=== PATIENT | male | born 1960 | race African-American/Black ===

== ENCOUNTER 2016-07-25 05:53 | Inpatient (IN) ==
[2016-07-25 06:16] LABS: URINE CULTURE PL NEEDED? NO; URINE SOURCE VOIDED
--- NOTE | 2016-07-25 06:25 | PROVIDER DOCUMENTATION ---
HPI-Male Problem - General Chief Complaint: UTI Symptoms Stated Complaint: N/V SOB Time Seen by Provider: 07/25/16 06:13 Source: patient Allergies/Adverse Reactions: Patient Allergies Allergy/AdvReac Type Severity Reaction Status Date / Time codeine [Codeine] Allergy Intermediate ITCHING Verified 07/12/16 23:45 Home Medications: Amlodipine Besylate [Norvasc] 10 mg PO DAILY 06/20/15 - History of Present Illness-Male Nature of Presenting Problem: pt started with burning on urination 2 weeks ago and has occssional nausea and vomiting. he also states that his stool has recently been black. he is on disability for trouble with his knee Review of Systems - Adult - REVIEW OF SYSTEMS - ADULT Constitutional: denies: chills, fever Eyes: denies: discharge, blurred vision Ears, Nose, Mouth & Throat: denies: ear discharge, nose pain, throat pain Cardiovascular: denies: chest pain, irregular heart rate, poor circulation Respiratory: denies: chronic cough, cough, shortness of breath Gastrointestinal: reports: nausea, vomiting. denies: abdominal pain, constipation, diarrhea Genitourinary: reports: dysuria. denies: flank pain, urinary retention, urgency Musculoskeletal: denies: bone pain, joint pain, muscle weakness Integumentary: denies: itching, nail changes Neurological: denies: ataxia, numbness, other Psychiatric: denies: emotional problems Endocrine: denies: goiter, cold intolerance, heat intolerance Hematologic/Lymphatic: denies: low blood count, lymphedema Allergic/Immunologic: denies: eczema, frequent infections, hives Past History - Adult - PAST MEDICAL HISTORY-ADULT Review of Records: reports: Nursing Assessment Review, Medications Reviewed Major Childhood Illnesses: reports: denies history Cardiovascular: reports: HTN Respiratory: reports: denies history Gastrointestinal: reports: denies history Obstetrical/Gynecological: reports: denies history Genitourinary: reports: denies history Musculoskeletal: reports: arthritis, other (lower back pain/ carpal tunnel release/) Neurological: reports: denies history Psychiatric: reports: denies history Endocrine/Immune: reports: denies history Other Conditions: reports: denies history - PRIOR SURGERIES/PROCEDURES Surgical/Procedure History: reports: none - PRIOR HOSPITALIZATIONS Prior Hospitalizations: reports: for other non-related - IMMUNIZATION STATUS Childhood Immunizations: See Nurse Assessment Flu Vaccine: See Nurse Assessment - FAMILY HISTORY Family History: reviewed, not pertinent Physical Exam-General - PHYSICAL EXAM-ADULT Initial Vital Signs Reviewed: Yes - CONSTITUTIONAL General Appearance: appears well, alert, no apparent distress - EYES Eyes: PERRL/EOMI, pink conjunctivae - HEAD, EARS, NOSE, MOUTH & THROAT HENMT: normocephalic/atraumatic, moist mucous membranes, normal ENT inspection - NECK Neck: non-tender, full range of motion, supple, normal inspection - RESPIRATORY Respiratory: chest non-tender, lungs clear, normal breath sounds, no pleuratic chest pain, no respiratory distress, no accessory muscle use - CARDIOVASCULAR Cardiovascular: normal peripheral pulses, regular rate, rhythm, no edema, no gallop, no JVD, no murmur - GASTROINTESTINAL (ABDOMEN) Abdominal Exam: normal bowel sounds, non tender, soft, no organomegaly, no pulsatile mass - GENITOURINARY Rectal Exam: normal exam, normal rectal tone - LYMPHATIC Lymphatic: no adenopathy - MUSCULOSKELETAL Back Exam: normal inspection, no CVA tenderness, no vertebral tenderness Extremity: normal range of motion, non-tender, normal gait, normal inspection, no pedal edema, no calf tenderness, normal capillary refill - SKIN Integumentary: normal color, normal turgor, warm/dry, abrasion(s) - NEUROLOGIC Neurologic: grossly normal, no motor/sensory deficits Progress - PLAN OF CARE/RESULTS Progress/Plan/Lab Results: Laboratory Tests 07/25/16 07/25/16 07/25/16 06:00 06:00 06:10 WBC RBC Hgb Hct MCV MCH MCHC RDW Std Deviation Plt Count MPV Immature Gran % (Auto) Neut % (Auto) Lymph % (Auto) [place] % (Auto) Eos % (Auto) Baso % (Auto) Immature Gran # (Auto) Neut # Lymph # [place] # Eos # Baso # Sodium Potassium Chloride Carbon Dioxide Anion Gap BUN Creatinine Estimated GFR/1.73 m2 BUN/Creatinine Ratio Glucose Calculated Osmolality Calcium Total Bilirubin AST ALT Alkaline Phosphatase Total Protein Albumin Globulin Albumin/Globulin Ratio Urine Source VOIDED Urine Color YELLOW Urine Clarity CLEAR Urine pH 6.0 Ur Specific [place] 1.020 Urine Protein TRACE A Urine Ketones NEGATIVE Urine Blood NEGATIVE Urine Nitrite NEGATIVE Urine Bilirubin NEGATIVE Urine Urobilinogen 4+(12 mg/dL) Urine Microscopic RBC <10 Urine WBC NEGATIVE Urine Microscopic WBC <10 Ur Epithelial Cells <10 Urine Bacteria NEGATIVE Urine Glucose NEGATIVE Stool Occult Blood POSITIVE A Urine Opiates Screen NONE DETECTED Ur Oxycodone Screen NONE DETECTED Urine Methadone Screen NONE DETECTED Ur Barbituates Screen NONE DETECTED Ur Tricyclics Screen NONE DETECTED Ur Phencyclidine Scrn NONE DETECTED Ur Amphetamines Screen PRESUMPTIVE POSITIVE A U Methamphetamines Scrn PRESUMPTIVE POSITIVE A Urine MDMA Screen NONE DETECTED U Benzodiazepines Scrn NONE DETECTED Urine Cocaine Screen NONE DETECTED U Cannabinoids Screen PRESUMPTIVE POSITIVE A 07/25/16 07/25/16 06:30 06:30 WBC 10.16 RBC 2.78 L Hgb 7.5 L Hct 23.2 L MCV 83.5 MCH 27.0 MCHC 32.3 L RDW Std Deviation 13.8 Plt Count 476 H MPV 9.4 Immature Gran % (Auto) 0.4 Neut % (Auto) 57.9 Lymph % (Auto) 20.7 [place] % (Auto) 13.3 H Eos % (Auto) 7.2 Baso % (Auto) 0.5 Immature Gran # (Auto) 0.04 Neut # 5.89 Lymph # 2.10 [place] # 1.35 H Eos # 0.73 H Baso # 0.05 Sodium 134 L Potassium 3.6 Chloride 103 Carbon Dioxide 26 Anion Gap 5 BUN 9 Creatinine 0.8 Estimated GFR/1.73 m2 > 60 BUN/Creatinine Ratio 11 Glucose 111 H Calculated Osmolality 268 Calcium 8.5 L Total Bilirubin 0.20 AST 52 H ALT 73 H Alkaline Phosphatase 113 Total Protein 6.1 L Albumin 3.0 L Globulin 3.0 Albumin/Globulin Ratio 1.0 Urine Source Urine Color Urine Clarity Urine pH Ur Specific [place] Urine Protein Urine Ketones Urine Blood Urine Nitrite Urine Bilirubin Urine Urobilinogen Urine Microscopic RBC Urine WBC Urine Microscopic WBC Ur Epithelial Cells Urine Bacteria Urine Glucose Stool Occult Blood Urine Opiates Screen Ur Oxycodone Screen Urine Methadone Screen Ur Barbituates Screen Ur Tricyclics Screen Ur Phencyclidine Scrn Ur Amphetamines Screen U Methamphetamines Scrn Urine MDMA Screen U Benzodiazepines Scrn Urine Cocaine Screen U Cannabinoids Screen Orders Category Date Time Status CBC WITH ELECTRONIC DIFF [HEME] Stat Lab 07/25/16 06:30 Completed CMP [COMPREHENSIVE METABOLIC PANEL] [CHEM] Stat Lab 07/25/16 06:30 Completed OCCULT BLOOD SCREEN STOOL PL Stat Lab 07/25/16 06:10 Completed UDS [URINE DRUG SCREEN PL] Stat Lab 07/25/16 06:[address] W/POSS RFLX CULT [URINALYSIS] Stat Lab 07/25/16 06:00 Completed 0.9% Sodium Chloride Inj [Ns] 1,000 ml Med 07/25/16 07:51 Active IV 125 mls/hr 0.9% Sodium Chloride Inj [Ns] 80 ml Med 07/25/16 08:00 Active Pantoprazole [Protonix] 80 mg IV 10 mls/hr Vital Signs Temp Pulse Resp BP Pulse Ox 07/25/16 05:59 97.9 F 90 18 140/083 100 codeine [Codeine] Allergy (Intermediate, Verified 07/12/16 23:45) ITCHING Amlodipine Besylate [Norvasc] 10 mg PO DAILY 06/20/15 Omeprazole [Prilosec] 20 mg PO DAILY@0700 #30 capsule 06/11/16 Laboratory 07/25/16 07/25/16 07/25/16 06:30 06:30 06:10 WBC 10.16 RBC 2.78 L Hgb 7.5 L Hct 23.2 L MCV 83.5 MCH 27.0 MCHC 32.3 L RDW Std Deviation 13.8 Plt Count 476 H MPV 9.4 Immature Gran % (Auto) 0.4 Neut % (Auto) 57.9 Lymph % (Auto) 20.7 [place] % (Auto) 13.3 H Eos % (Auto) 7.2 Baso % (Auto) 0.5 Immature Gran # (Auto) 0.04 Neut # 5.89 Lymph # 2.10 [place] # 1.35 H Eos # 0.73 H Baso # 0.05 Sodium 134 L Potassium 3.6 Chloride 103 Carbon Dioxide 26 Anion Gap 5 BUN 9 Creatinine 0.8 Estimated GFR/1.73 m2 > 60 BUN/Creatinine Ratio 11 Glucose 111 H Calculated Osmolality 268 Calcium 8.5 L Total Bilirubin 0.20 AST 52 H ALT 73 H Alkaline Phosphatase 113 Total Protein 6.1 L Albumin 3.0 L Globulin 3.0 Albumin/Globulin Ratio 1.0 Urine Source Urine Color Urine Clarity Urine pH Ur Specific [place] Urine Protein Urine Ketones Urine Blood Urine Nitrite Urine Bilirubin Urine Urobilinogen Urine Microscopic RBC Urine WBC Urine Microscopic WBC Ur Epithelial Cells Urine Bacteria Urine Glucose Stool Occult Blood POSITIVE A Urine Opiates Screen Ur Oxycodone Screen Urine Methadone Screen Ur Barbituates Screen Ur Tricyclics Screen Ur Phencyclidine Scrn Ur Amphetamines Screen U Methamphetamines Scrn Urine MDMA Screen U Benzodiazepines Scrn Urine Cocaine Screen U Cannabinoids Screen 07/25/16 07/25/16 06:00 06:00 WBC RBC Hgb Hct MCV MCH MCHC RDW Std Deviation Plt Count MPV Immature Gran % (Auto) Neut % (Auto) Lymph % (Auto) [place] % (Auto) Eos % (Auto) Baso % (Auto) Immature Gran # (Auto) Neut # Lymph # [place] # Eos # Baso # Sodium Potassium Chloride Carbon Dioxide Anion Gap BUN Creatinine Estimated GFR/1.73 m2 BUN/Creatinine Ratio Glucose Calculated Osmolality Calcium Total Bilirubin AST ALT Alkaline Phosphatase Total Protein Albumin Globulin Albumin/Globulin Ratio Urine Source VOIDED Urine Color YELLOW Urine Clarity CLEAR Urine pH 6.0 Ur Specific [place] 1.020 Urine Protein TRACE A Urine Ketones NEGATIVE Urine Blood NEGATIVE Urine Nitrite NEGATIVE Urine Bilirubin NEGATIVE Urine Urobilinogen 4+(12 mg/dL) Urine Microscopic RBC <10 Urine WBC NEGATIVE Urine Microscopic WBC <10 Ur Epithelial Cells <10 Urine Bacteria NEGATIVE Urine Glucose NEGATIVE Stool Occult Blood Urine Opiates Screen NONE DETECTED Ur Oxycodone Screen NONE DETECTED Urine Methadone Screen NONE DETECTED Ur Barbituates Screen NONE DETECTED Ur Tricyclics Screen NONE DETECTED Ur Phencyclidine Scrn NONE DETECTED Ur Amphetamines Screen PRESUMPTIVE POSITIVE A U Methamphetamines Scrn PRESUMPTIVE POSITIVE A Urine MDMA Screen NONE DETECTED U Benzodiazepines Scrn NONE DETECTED Urine Cocaine Screen NONE DETECTED U Cannabinoids Screen PRESUMPTIVE POSITIVE A Departure - Departure Time of Disposition Order: 08:18 DIAGNOSIS: UGI bleed Disposition: ADMITTED INPATIENT 09 Certified Medical Emergency: Emergent Condition: Stable Additional Instructions: ED Follow Up Instructions: You have been treated by a care provider in the Emergency Department. These instructions are being provided to you so you can have an understanding of how to care for yourself upon discharge. Upon discharge from the Emergency Department, you are responsible for making arrangements for follow-up care by a physician of your choice. Take all prescribed medications as directed. Return to the Emergency Department immediately for any new or worsening symptoms. You may call the Physician Referral phone number at [phone] to obtain a list of Physicians who are taking new patients. Referrals: Reji Cruz MD [STAFF PHYSICIAN] - None,PCP [Primary Care Provider] - Forms: Return to School/Parent Work
[2016-07-25 06:30] LABS: OCCULT BLOOD 1 POSITIVE (NEGATIVE)
[2016-07-25 06:30] LABS: BILIRUBIN URINE NEGATIVE (NEGATIVE); BLOOD URINE NEGATIVE (NEGATIVE); CLARITY CLEAR (CLEAR); COLOR YELLOW; GLUCOSE URINE NEGATIVE (NEGATIVE); LEUKOCYTES URINE NEGATIVE (NEGATIVE); NITRITE URINE NEGATIVE (NEGATIVE); PROTEIN URINE TRACE mg/dL (NEGATIVE); UROBILINOGEN URINE 4+(12 mg/dL)
[2016-07-25 06:40] LABS: MANUAL DIFF NEEDED? NO
[2016-07-25 06:41] LABS: UR AMPHETAMINES QUAL PRESUMPTIVE POSITIVE (NONE DETECT); UR BARBITUATES QUAL NONE DETECTED (NONE DETECT); UR BENZODIAZEPIN QUAL NONE DETECTED (NONE DETECT); UR CANNABINOIDS QUAL PRESUMPTIVE POSITIVE (NONE DETECT); UR COCAINE QUAL NONE DETECTED (NONE DETECT); UR MDMA QUAL NONE DETECTED (NONE DETECT); UR METHADONE QUAL NONE DETECTED (NONE DETECT); UR METHAMPHETAMINE QUAL PRESUMPTIVE POSITIVE (NONE DETECT); UR OPIATES QUAL NONE DETECTED (NONE DETECT); UR OXYCODONE QUAL NONE DETECTED (NONE DETECT); UR PCP QUAL NONE DETECTED (NONE DETECT); UR TCA QUAL NONE DETECTED (NONE DETECT)
[2016-07-25 06:45] LABS: URINE EPITHELIAL CELLS <10 /HPF (<10); URINE RBC <10 /HPF (<10); URINE WBC <10 /HPF (<10)
[2016-07-25 07:11] LABS: AGAP 5; ALKALINE PHOSPHATASE 113 U/L (32-122); BUN 9 mg/dL (8-22); CALCIUM 8.5 mg/dL (8.8-10.2); CHLORIDE 103 mmol/L (98-107); COSMO 268; GOT 52 U/L (10-34); GPT 73 U/L (10-44); POTASSIUM 3.6 mmol/L (3.5-5.1); SODIUM 134 mmol/L (136-145); TCO2 26 mmol/L (25-35); TOTAL PROTEIN 6.1 g/dL (6.3-8.3)
[2016-07-25 07:34] LABS: BASO% 0.5 % (0.0-0.8); EOS# 0.73 X1000 (0.0-0.7); EOS% 7.2 % (0.0-10.0); HEMATOCRIT 23.2 % (42.0-52.0); HEMOGLOBIN 7.5 g/dL (14.0-18.0); IMM GRAN# 0.04 X1000 (0.0-0.04); IMM GRAN% 0.4 % (0.0-0.5); LYMPH% 20.7 % (20.5-51.1); MCHC 32.3 g/dL (33-37); MCV 83.5 FL (81-99); MONO# 1.35 X1000 (0.11-0.59); MONO% 13.3 % (1.7-9.3); MPV 9.4 FL (7.4-10.4); NEUT% 57.9 % (42.2-75.2); PLT 476 X1000 (130-400); RBC 2.78 XMIL (4.7-6.1)
[2016-07-25] MEDS ORDERED: NS 1,000 ML IV ONE (07:51)
[2016-07-25] MEDS ORDERED: PROTONIX 80 MG in NS 80 ML IV SCH (08:00)
[2016-07-25 08:50] LABS: INR 0.99 (0.86-1.15); PROTIME 13.4 Seconds (12.1-15.5)
[2016-07-25] MEDS ORDERED: THIAMINE IM ONE (09:06)
--- NOTE | 2016-07-25 09:40 | HISTORY AND PHYSICAL ---
CHIEF COMPLAINT: Burning on urination and abdominal pain. HISTORY OF PRESENT ILLNESS: This is a 56-year-old male with a history of hypertension, medical noncompliance, and substance abuse, alcohol abuse. He presented to the emergency room complaining of 2 weeks of abdominal pain, nausea, vomiting, and burning on urination. He said that the burning on urination started first, and within about 2 days he developed nausea and then started vomiting. He started taking Pepto-Bismol, and a few days after starting the Pepto-Bismol, his stools turned black. He denies any prior black or bloody stools. He denies diarrhea or constipation. He has continued to eat and tolerated food in between bouts of nausea and vomiting. He does have a history of alcoholism, as well as methamphetamine and marijuana use. He told the ER that he drinks a 6-pack twice a week. He does admit to drinking quite a bit more than that. He has never had any GI testing. In the emergency room, he was found to have a hemoglobin of 7.5 and hematocrit of 23.2. In looking back at his old chart over the previous years, he has been it looks like 11 to 13 and 35 to 45 in the past. He was also found to have guaiac-positive stools. PAST MEDICAL HISTORY: Hypertension, medical noncompliance, alcohol abuse, illicit drug abuse, tobacco abuse. PAST SURGICAL HISTORY: Bilateral carpal tunnel surgery. SOCIAL HISTORY: He lives alone. He does smoke 1 pack a day. He drinks almost daily. He does use methamphetamines and marijuana daily. ALLERGIES: Codeine, which causes itching. HOME MEDICATIONS: "Some blood pressure pill, but I have not had it in a while." REVIEW OF SYSTEMS: A 14-point review of systems is discussed with the patient with pertinent positives stated in the HPI. He denies chest pain, palpitations, syncope, dizziness, any black or bloody vomitus, any bloody stools, diarrhea, constipation, shortness of breath, cough, fever, chills, recent weight loss or weight gain, hematuria, frequency or urgency. PHYSICAL EXAMINATION: GENERAL: This is a 56-year-old gentleman who is lying in the bed, in no distress. VITAL SIGNS: Blood pressure is 140/83 with a heart rate of 90, respirations are 18, temperature is 97.9 degrees with room air saturations of 100%. HEENT: Head is normocephalic, atraumatic. Pupils equal, round, react to light. EOMs are intact. Sclerae anicteric. Mucous membranes are moist. He has poor dentition. NECK: Supple with trachea midline. CARDIOVASCULAR: Regular rate and rhythm. S1 and S2 appreciated. PULMONARY: Breath sounds are clear. No increased work of breathing noted. GASTROINTESTINAL: Abdomen is soft, nontender, nondistended. Bowel sounds in all 4 quadrants. BACK: No CVAT. No spine tenderness. MUSCULOSKELETAL: Good range of motion of joints. EXTREMITIES: No clubbing, cyanosis, or edema. Calves are nontender. Pulses are palpable x4. SKIN: Warm and dry with no rashes or lesions noted. NEUROLOGIC: He is alert and oriented x3. DIAGNOSTICS: WBC is 10.16 with a hemoglobin 7.5, hematocrit 23.2, and platelets of 476,000. Sodium is 134, potassium 3.6, BUN 9, creatinine 0.8, with a glucose of 111. Urinalysis is essentially negative. Stool for blood was positive. Urine drug screen is positive for amphetamines, methamphetamines, and cannabinoids. ASSESSMENT AND PLAN: 1. Gastrointestinal bleed. The patient will remain nothing by mouth. He has been typed and crossed. He is currently receiving a Protonix drip. We will trend hemoglobin and hematocrit. Gastrointestinal will be consulted. 2. Hypertension. The patient has been prescribed antihypertensives in the past, and he has been noncompliant. At the present, he does not remember what medication he has been prescribed or when he last took it. We will start appropriate medications and trend vital signs. 3. Alcohol abuse. He did admit to drinking more than what he stated when he came into the emergency room. We will go ahead and give thiamine now. We will start a banana bag daily. We will monitor for any withdrawal. 4. 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 5. Tobacco abuse, aware. Dictated by MALKA Grullon for Alfa Pearce MD
[2016-07-25] MEDS ORDERED: POTASSIUM CHLORIDE 20 MEQ, MAGNESIUM SULFATE 2 GM, THIAMINE 100 MG, FOLIC ACID 1 MG, M.... IV SCH ×6 (11:00)
[2016-07-25 12:06] LABS: HEMATOCRIT 23.3 % (42.0-52.0); HEMOGLOBIN 7.5 g/dL (14.0-18.0)
[2016-07-25 12:21] LABS: AMYLASE 107 U/L (20-200); HDL 65 mg/dL (35-55); LDL 78 mg/dL; LIPASE 52 U/L (13-60); TRIGLYCERIDES 81 mg/dL (39-160); VLDL 16 mg/dL
[2016-07-25 12:22] LABS: IRON SATURATION 5 %; TIBC 276 ug/dL; TOTAL IRON 14 ug/dL (53-167); UNBOUND IRON 262 ug/dL (112-346)
[2016-07-25 13:11] LABS: FREE T4 1.19 ng/dL (0.93-1.70)
[2016-07-25] MEDS: APRESOLINE IV PRN (13:40)
[2016-07-25] MEDS: TYLENOL PO PRN (16:45)
--- NOTE | 2016-07-25 17:15 | Diag Imaging Result Document ---
PROCEDURE NAME: CHEST-PORTABLE - 07/25/2016 PORTABLE UPRIGHT CHEST: COMPARISON: Compared to 07/12/2016. FINDINGS: The lungs are well expanded. Heart is not enlarged considering the portable upright exam. The vessels are not distended. No pneumonia. No pleural effusions identified. There is an old left rib fracture. IMPRESSION: Negative chest.
[2016-07-25] MEDS: PROTONIX 80 MG in NS 80 ML IV SCH (17:45)
[2016-07-25 17:46] LABS: HEMATOCRIT 27.2 % (42.0-52.0)
[2016-07-25] MEDS ORDERED: GOLYTELY PO ONE (20:00)
[2016-07-25] MEDS: ZOSYN 3.375 GM/NS 50 ML IV SCH (20:30)
[2016-07-25] MEDS: ATIVAN IM PRN (21:00)
[2016-07-25] MEDS: M.V.I.-12 10 ML, FOLIC ACID 1 MG, MAGNESIUM SULFATE 1 GM, THIAMINE 100 MG in NS 1,000 ML IV SCH (21:15)
[2016-07-25 22:12] LABS: HEMATOCRIT 29.4 % (42.0-52.0); HEMOGLOBIN 9.9 g/dL (14.0-18.0)
--- NOTE | 2016-07-25 22:53 | CONSULTATION ---
DATE OF CONSULTATION: 07/25/2016 REFERRING PHYSICIAN: Dr. Balbir Seymour M.D. PRIMARY EMERGENCY ROOM PHYSICIAN: Dr. Kimo El M.D. PRIMARY CARE PHYSICIAN: Dr. Lauri Cruz M.D. INDICATION FOR CONSULTATION: 1. Anemia. 2. Melena. 3. Abdominal pain. 4. Nausea with vomiting. HISTORY OF PRESENT ILLNESS: The patient is a 56-year-old, male , who presented to the emergency room with 2 weeks of nausea with vomiting, abdominal pain, dark stools, and burning when he urinates. He developed burning with urination initially. This was followed by the onset of the nausea with vomiting and abdominal pain. His stools turned dark. He subsequently started Pepto-Bismol. He does note that his stools were dark before the Pepto-Bismol. Consequently, he has had difficulty eating due to the nausea with vomiting and abdominal pain. However, when the nausea and vomiting subsides, he is able to tolerate his diet. He has a history of polysubstance abuse, including alcohol, methamphetamines, amphetamines and marijuana use. In the emergency room, his alcohol intake was reportedly a 6 pack twice a week. He has admitted other nursing staff that he drinks on a near daily basis. He reports to me that he drinks a pint of vodka 2 to 3 times per week. Since admission, he was found to have heme- positive stools and was anemic. We are asked to evaluate and identify the source of bleeding. It should be noted that he had a GI bleed when he had a carpal tunnel syndrome, approximately 4 years ago. He reports at that time, an EGD and colonoscopy was performed at [facility] but no source of bleeding was found. PAST MEDICAL HISTORY: 1. Hypertension. 2. Alcohol abuse. 3. Illicit drug use. 4. Tobacco use. 5. Medical noncompliance. PAST SURGICAL HISTORY: Carpal tunnel syndrome. SOCIAL HISTORY: He lives alone. He smokes 1 pack per day for more than 20 years. He reports drinking alcohol on a daily basis, but then recanted and states that he drinks a few times per week. He has a history of methamphetamine, amphetamine and marijuana use. MEDICATION ALLERGIES: Codeine (itching). HOME MEDICATIONS: None. He has been prescribed a blood pressure medication but he is not currently taking it. REVIEW OF SYSTEMS: Positive for the information as noted above. PHYSICAL EXAMINATION: vital signs: On exam, his blood pressure is 135/89, pulse 94, respirations 16, temperature of 99. HEENT: Negative for jaundice. He has poor dentition. His oropharyngeal mucosal membranes are moist. Pulmonary: Lungs are clear to auscultation with normal respiratory effort. Cardiovascular: Reveals regular rate and rhythm. No murmurs, gallops , or rubs. Abdominal: Reveals normoactive bowel sounds. The abdomen is soft with mild epigastric tenderness, but no rebound or guarding. Extremities: Bilaterally are negative for cyanosis, clubbing, or edema. Neurologic: He is alert and oriented x3 with appropriate mood, affect, and memory. OBJECTIVE DATA: Remarkable for hemoglobin of 7.5, with hematocrit of 23.2, and a white count of 10.16. He has 476,000 platelets. Post transfusion of 2 units of packed red blood cells, his hemoglobin is 9.0 with hematocrit of 27.2. PT is 13.4 with an INR 0.99. Sodium is 134, potassium 3.6, chloride 103, CO2 of 26, BUN 9, creatinine 0.8, with a glucose of 111. Calcium is 8.5, total bilirubin 0.2, AST 52, ALT 73, alkaline phosphatase 113, total protein 6.1, with an albumin of 3.0. His folate is 7.6, with a B12 of 594. His iron is 14, with a 5% saturation and a ferritin of 45. IMPRESSION: 1. Nausea with vomiting. 2. Abdominal pain. 3. Melena. 4. Iron deficiency anemia. 5. Elevated liver function tests. 6. Protein calorie malnutrition. 7. Polysubstance abuse. 8. Alcohol abuse. 9. Folate deficiency. RECOMMENDATION: 1. I agree with the Protonix drip. 2. I agree with monitoring serial hemoglobins and hematocrits, and transfusing as indicated. 3. We will place patient on the schedule for an EGD and colonoscopy in the morning. The source of bleeding includes peptic ulcer disease and arteriovenous malformations, given his history of a GI bleed 4 years ago with no bleeding source found. 4. Please replete his folic acid. 5. His elevated liver function tests will require a more formal evaluation after the source of bleeding has been found. 6. I would check an acute viral hepatitis panel, in light of his polysubstance abuse. 7. Additional recommendations to follow based on his clinical course. 8. Consent was discussed with the patient, and multiple questions were answered. 9. We will schedule the patient for 7:30 a.m., on 07/26/2016. MTDD
[2016-07-26] MEDS: ZOSYN 3.375 GM/NS 50 ML IV SCH ×3 (03:43→20:00)
[2016-07-26] MEDS: PROTONIX 80 MG in NS 80 ML IV SCH ×3 (03:44→23:17)
[2016-07-26] MEDS ORDERED: FLEET ENEMA PR ONE ×2 (06:06→06:07)
[2016-07-26 06:19] LABS: HEMATOCRIT 27.5 % (42.0-52.0); HEMOGLOBIN 9.3 g/dL (14.0-18.0); MCH 27.8 PG (27-31); MCHC 33.8 g/dL (33-37); MCV 82.3 FL (81-99); MPV 9.4 FL (7.4-10.4); RBC 3.34 XMIL (4.7-6.1)
[2016-07-26] MEDS ORDERED: MYLICON DROPS (DOSE) MISC ONE (07:07)
[2016-07-26 07:13] LABS: AGAP 11; BUN 7 mg/dL (8-22); CALCIUM 7.9 mg/dL (8.8-10.2); CHLORIDE 103 mmol/L (98-107); COSMO 267; POTASSIUM 4.2 mmol/L (3.5-5.1); SODIUM 135 mmol/L (136-145); TCO2 21 mmol/L (25-35)
[2016-07-26] MEDS ORDERED: DIPRIVAN 1% ONE (08:19)
[2016-07-26] MEDS ORDERED: FENTANYL ONE (08:20)
[2016-07-26] MEDS ORDERED: FLUZONE QUAD 2016-2017 SYRINGE IM ONE (09:00)
[2016-07-26] MEDS ORDERED: M.V.I.-12 10 ML, FOLIC ACID 1 MG, MAGNESIUM SULFATE 1 GM, THIAMINE 100 MG in NS 1,000 ML IV SCH (09:00)
--- NOTE | 2016-07-26 09:58 | OPERATIVE NOTE ---
PROCEDURE DATE: 07/26/2016 REFERRING PHYSICIAN: Balbir Seymour M.D. PRIMARY CARE PHYSICIAN: Reji Cruz M.D. HEMATOLOGY/ONCOLOGY: Apryl Metz M.D. INDICATION FOR PROCEDURE: 1. Nausea with vomiting. 2. Abdominal pain. 3. Anemia. 4. Melena. 5. Polysubstance abuse. PROCEDURE PERFORMED: Colonoscopy. CONSENT: Informed consent was obtained from the patient prior to the procedure. The risks, benefits, and alternatives were discussed. MEDICATION: The patient received monitored anesthesia care. PERFORMING PHYSICIAN: Ashley Arauz M.D. ASSISTANTS: 1. [facility] 2. Joanna Madrigal RN. 3. Anabella Collier RN. 4. Alexi Gilbert CRNA. 5. Arslan Wilkinson M.D. (anesthesia) COMPLICATIONS: None. ESTIMATED BLOOD LOSS: None. SPECIMENS REMOVED: None. CECAL INTUBATION TIME: 6 minutes. WITHDRAWAL TIME: 7 minutes. PREP QUALITY: Poor. FINDINGS: After the EGD was performed, the patient was repositioned. The pediatric colonoscope was inserted to the cecum. Approximately 50%-60% of the cecal base was obscured. After evacuation, the review of the appendiceal orifice, and cecum appeared grossly normal. Upon withdrawal, the colonic mucosa appeared normal. In the sigmoid colon, there were rare sigmoid diverticula with no evidence of diverticulitis. In the upper rectum, there were grade 2 hemorrhoids. On retroflexed view, there were large external hemorrhoids. The quality of the prep was poor with approximately 40% of the lumen obscured. No large masses or polyps were seen. After the exam was complete, the lumen was decompressed and the scope was removed without incident. IMPRESSION: 1. Poor prep. 2. Rare sigmoid diverticulosis. 3. Grade 2 internal hemorrhoids. 4. Large external hemorrhoids. RECOMMENDATION: 1. Please see the EGD report for additional details. 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 2. From colonic standpoint, there was no evidence of polyps or masses. Therefore, I would repeat his colonoscopy in 5 years depending his outcome after treatment of the esophageal lesion. 3. In the future, he should be placed on a high-fiber diet. 4. Additional recommendations to follow based on his clinical course and the results of his ongoing evaluation. [facility]
--- NOTE | 2016-07-26 10:02 | OPERATIVE NOTE ---
PROCEDURE DATE: 07/26/2016 REFERRING PHYSICIAN: Balbir Seymour M.D. PRIMARY CARE PHYSICIAN: Reji Cruz M.D. INDICATION FOR PROCEDURE: 1. Nausea with vomiting. 2. Epigastric pain. 3. Anemia. 4. Melena. 5. Dysphagia. 6. Polysubstance abuse. PROCEDURE PERFORMED: 1. Esophagogastroduodenoscopy with biopsy. 2. Esophagogastroduodenoscopy with control of bleeding. CONSENT: Informed consent was obtained from the patient prior to the procedure. The risks, benefits, and alternatives were discussed. MEDICATION: The patient received monitored anesthesia care. PERFORMING PHYSICIAN: Ashley Arauz M.D. ASSISTANTS: 1. [facility] 2. Joanna Madrigal RN. 3. Anabella Collier RN. 4. Alexi Gilbert CRNA. 5. Arslan Wilkinson M.D. (anesthesia). COMPLICATIONS: There were no complications. ESTIMATED BLOOD LOSS: 1-2 mL. SPECIMENS REMOVED: 1. Biopsy of esophageal mass. 2. Biopsy of the upper esophagus from 30-34 cm. FINDINGS: After sedation was achieved, the upper endoscope was inserted to the 2nd portion of the duodenum. The hypopharynx appeared endoscopically normal. Upon intubating the esophagus, there was grade D erosive esophagitis beginning at the upper esophageal sphincter and extending the length of the esophagus. At 34 cm, there were 2 tongues of salmon-colored mucosa. The GE junction was irregular at 35 cm. Distal to the gastroesophageal junction in the distal tubular esophagus, there was a large ulcerated mass that was exophytic with luminal compromise. Multiple biopsies were taken. It should be noted that the mass was bleeding at the time of scope insertion. The diaphragmatic hiatus was measured at 45 cm from the incisors. Although the distal esophagus was tortuous with luminal narrowing, we were able to transverse the esophagus and intubate the gastric lumen. In the stomach, there was erosive gastritis and retained gastric fluid suggestive of possible stasis. The gastric mucosa appeared otherwise normal except for the aforementioned gastritis. It was present in the antrum, fundus, and body. The pylorus appeared endoscopically normal. In the duodenal bulb, there was mild duodenitis. There was also a nonbleeding AVM. After the exam was complete and biopsies were taken, the areas that were bleeding were cauterized with the black wire. Once hemostasis was achieved, the lumen was decompressed and the scope was removed without incident. IMPRESSION: 1. Grade D erosive esophagitis. 2. Distal esophageal mass. 3. 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 4. Mild luminal narrowing. 5. It should be noted that the blood vessels in the esophagus appear slightly prominent and therefore, I could not rule out the presence of esophageal varices. Judith ink tattoo was placed 0.5 mL x3 proximal to the esophageal lesion and distal to the esophageal lesion in the gastric mucosa. The lumen was then decompressed and the scope was removed without incident. IMPRESSION: 1. Grade D erosive esophagitis. 2. Esophageal mass. 3. Soquel-colored mucosa in the tubular esophagus, suggestive of Richmond's esophagus. 4. Erosive gastritis. 5. Duodenitis. 6. Cannot rule out esophageal varices. 7. Successful Judith ink tattoo placement. RECOMMENDATION: 1. Await endoscopic biopsy results. 2. I would obtain a chest, abdomen and pelvis CT scan today to stage his esophageal lesion. 3. He will need an EUS as an outpatient to define the lesion and possibly take deeper tissue biopsies. 4. Continue Protonix drip for 72 hours and then transition to twice daily dosing. 5. Please consult Dr. Apryl Metz from Hematology-Oncology for assistance with managing his lesion. 6. We will proceed with the colonoscopy as previously scheduled. [facility]
[2016-07-26] MEDS ORDERED: XYLOCAINE-MPF 2% ONE (10:19)
[2016-07-26 11:05] LABS: HEPATITIS PROFILE ACUTE SEE COMMENTS (())
[2016-07-26] MEDS ORDERED: VENOFER 300 MG in NS 250 ML IV ONE (11:40)
[2016-07-26] MEDS: APRESOLINE IV PRN (12:55)
--- NOTE | 2016-07-26 13:11 | Diag Imaging Result Document ---
PROCEDURE NAME: THORAX/ABDOMEN/PELVIS - 07/26/2016 CT THORAX ABDOMEN AND PELVIS WITH CONTRAST: TECHNIQUE: Exam performed with oral and intravenous contrast. A dose reduction protocol was used. FINDINGS: There is irregular wall thickening at the fundus of the stomach and there is wall thickening along the distal esophagus. These findings are suspicious for mass lesion. There is extension of mass into the nearby soft tissues around the fundus of the stomach with nodularity. The stomach distal to the fundus also appears to have some generalized thickened cui, although the cui are less thickened than at the fundus. The tumor extension extends to the superior peripancreatic region at the midline and to the left of midline. There is a 1.6 -cm low-density lesion in the anterior left lobe of the liver, which is suspicious for metastasis. There are 2 subcentimeter well-demarcated low-density liver lesions also present but these may represent cysts. There is no adrenal mass identified. The bilateral kidneys enhance homogeneously. There is no hydronephrosis. There are no calcified gallstones seen. There is no evidence of small-bowel obstruction. The appendix is unremarkable. There is no abscess identified. There is no free air. There is a small amount of free fluid in the pelvis. There are lumbar spine degenerative changes noted. There is an enlarged lymph node at the superior mediastinum on the right which measures 1.7 cm. There are calcified subcarinal mediastinal lymph nodes from old granulomatous disease. There are tiny bilateral pleural effusions. There is scattered pulmonary subsegmental atelectasis. There is no pulmonary nodular lesion identified. There is no dense consolidation or pneumothorax identified. IMPRESSION: 1. Large mass at the fundus of the stomach with apparent extension into the distal esophagus and possible extension into the more-distal stomach. Direct extension of the mass into the soft tissues around the fundus of the stomach with nodularity. The direct extension includes the superior peripancreatic region at the midline and to the left of midline. These findings are consistent with malignancy. 2. Probable small metastatic lesion in left lobe of liver. 3. Enlarged lymph node at superior mediastinum on the right, possibly related to metastasis. Tiny bilateral pleural effusions. No other discrete metastatic disease identified in the thorax. [facility]
--- NOTE | 2016-07-26 13:40 | CONSULTATION ---
DATE OF CONSULTATION: 07/26/2016 CONSULT REQUEST BY: Ashley Arauz MD REASON FOR CONSULTATION: Esophageal mass. HISTORY OF PRESENT ILLNESS: Mr. Shay is a 56-year-old, male, who presented to the [facility] Emergency Department complaining of 2 weeks of abdominal pain with nausea, vomiting, as well as an episode of melena. The patient was admitted for suspected gastrointestinal bleed. On admission, he was found to have a hemoglobin of 7.5. He is now status post esophagogastroduodenoscopy and colonoscopy. Esophagogastroduodenoscopy revealed him to have an esophageal mass, which was subsequently biopsied. The patient was given 2 units of packed red blood cells and his hemoglobin is now up to 9.3. He is currently in the ICU and has no acute complaints. Patient's diet is being slowly advanced. We have been consulted due to the new esophageal mass found on esophagogastroduodenoscopy. PAST MEDICAL HISTORY: 1. Hypertension. 2. Medical noncompliance. 3. Substance abuse. 4. Alcohol abuse. PAST SURGICAL HISTORY: Bilateral carpal tunnel surgery. SOCIAL HISTORY: Currently lives alone. He reports that he drinks daily and uses both methamphetamines, as well as marijuana. REVIEW OF SYSTEMS: As per history of present illness. All else is negative and noncontributory. PHYSICAL EXAMINATION: Vital Signs: Temperature 97.6 degrees, heart rate 74, respirations 14, blood pressure 155/109. O2 saturation 100% on room air. General: male, sitting in the ICU bed eating and drinking without any issues. His daughter is at bedside. Head: Normocephalic, atraumatic. Eyes: Pupils equal, round, and reactive Ears, nose, throat, neck, and mouth: Oral mucosa is normal. Gross auditory acuity is intact. Trachea is midline. Cardiovascular: S1-S2 heard. No murmurs, gallops, or rubs appreciated. Regular rate and rhythm. Respiratory: Essentially clear to auscultation bilaterally. Normal respiratory effort. No rhonchi, rales, or wheezing noted. Abdomen: Soft, nondistended. Positive bowel sounds. Musculoskeletal: No obvious bony abnormalities noted. Extremities: No cyanosis or edema. He does have some clubbing in his fingers. Neurologic: Patient is alert. No obvious focal motor deficits noted. LABORATORY AND STUDIES: White blood cells 10.52, hemoglobin 9.3, hematocrit 27.5, platelets 447,000. Sodium 135, potassium 4.2, chloride 106, CO2 21, BUN 7, creatinine 0.8, glucose 84, folate 7.6, vitamin B12 594, iron 14, saturation percent 5, ferritin 45. Colonoscopy was negative. ASSESSMENT AND PLAN: 1. Esophageal mass. Patient is now status post biopsy. We will wait pathology report. CT of chest, abdomen, and pelvis has been ordered, but the results are currently pending. Follow up on CT report. Further treatment planning upon receiving results from both of these studies. 2. Anemia, likely secondary to blood loss. He has already been given 2 units of packed red blood cells with improvement of his hemoglobin up to 9.3. We will proceed with 300 mg of Venofer at this time. Patient is currently getting folic acid 1 mg daily via a banana bag. Continue folic acid daily. 3. Gastritis. As per Dr. Arauz. 4. Alcohol and substance abuse. We are aware. Thank you for allowing us participate in Mr. Shay's care while he is at [facility]. We will continue to follow along and adjust our treatment plan per his hospital course. Dictated by JOSIAH Martino for Apryl Metz MD
[2016-07-26] MEDS: M.V.I.-12 10 ML, FOLIC ACID 1 MG, MAGNESIUM SULFATE 1 GM, THIAMINE 100 MG in NS 1,000 ML IV SCH (14:48)
--- NOTE | 2016-07-26 15:45 | PROGRESS NOTE ---
DATE: 07/26/2016 SUBJECTIVE: This is a 56-year-old, male, transferred from [facility] secondary to profound symptomatic anemia. He however was with altered mental state, likely secondary to polysubstance use and abuse. Initially presented to the ER with complaints of dysuria. As a matter of fact, yesterday a handgun was found his pocket and he did not even remember it was there all this long. In any case, GI consult was requested. Endoscopy showed grade D erosive esophagitis and esophageal mass, salmon-colored mucosa in the tubular esophagus suggestive of Richmond's esophagus, erosive gastritis, duodenitis, cannot rule out esophageal viruses, and successful Judith inked to 2 placements. Case discussed with Dr. Arauz, industrial electrician. She will order now to stage patient's cancer and we will proceed and try to get biopsies for further evaluation and treatment. Hematology/Oncology consult was also called and Dr. Arauz has evaluated the patient at bedside. Patient is otherwise asymptomatic. He says he wants to go home. Denies any gross bleed. Per report, he however has continuous bleeding and oozing from this ulcerative mass. I have explained to patient need to stay for further evaluation and treatment. Discussed with and registered nurse of the floor. OBJECTIVE: Vital Signs: Temperature 97.2 degrees, pulse 78, respiratory rate 14, blood pressure 116/75, saturating 100% on room air. HEENT: Head is atraumatic, normocephalic. Pale mucous membranes. No jaundice. Nose and throat clear. No thrush. Neck: Supple, no adenopathy. Chest: Nontender. Lungs: Clear bilaterally. Heart: S1, S2 present. Regular rate and rhythm. No murmurs. No rubs. No gallops. Telemetry sinus rhythm. Abdomen: Somehow distended, positive hepatosplenomegaly. Bowel sounds present. Deep touch tenderness epigastric area. Extremities: No distal edema. No calf tenderness. Neurologic: Awake, alert, oriented x3. No asterixis. Muscle strength 5/5 in 4 limbs. Preserved distal sensation. Psych : Anxious. LABS: White blood cell count of 10.5, with a hemoglobin of 9.3, hematocrit of 27.5. Sodium 135, with a potassium of 4.2, chloride 103, carbon dioxide 21, BUN of 7, creatinine of 0.8. EGD as reported in subjective. APPRECIATION AND PLAN: 1. Esophageal mass. 2. Grade D erosive esophagitis. 3. Erosive gastritis. 4. Duodenitis. 5. Possibly esophageal varices. 6. Acute blood-loss anemia. 7. Polysubstance abuse including alcohol. 8. Likely chronic alcoholic liver disease. DISCUSSION: EGD findings noted. Case discussed with GI, Dr. Arauz. Now will proceed with staging and Hematology/Oncology has been consulted. We will continue to evaluate and wait for further testing. He might need to be transferred to a higher level facility for further evaluation and treatment. This, however, is pending staging. We will continue with serial exams, bowel regimen, serial hemoglobin and hematocrit, transfuse as needed. No Lovenox or heparin for DVT prophylaxis secondary to active bleeding, and GI prophylaxis with PPIs. Check labs in the morning. Patient is critically ill. Keep in ICU. CRITICAL CARE TIME SPENT: 22 minutes not including any other separate billable procedures. [facility]
[2016-07-26] MEDS: ATIVAN IM PRN (20:43)
[2016-07-27] MEDS: ZOSYN 3.375 GM/NS 50 ML IV SCH ×3 (03:32→19:56)
[2016-07-27 04:43] LABS: MANUAL DIFF NEEDED? NO
[2016-07-27 04:45] LABS: BASO% 0.3 % (0.0-0.8); EOS# 0.83 X1000 (0.0-0.7); EOS% 7.2 % (0.0-10.0); HEMATOCRIT 26.8 % (42.0-52.0); HEMOGLOBIN 8.8 g/dL (14.0-18.0); IMM GRAN# 0.03 X1000 (0.0-0.04); IMM GRAN% 0.3 % (0.0-0.5); LYMPH# 2.03 X1000 (1.2-3.4); LYMPH% 17.7 % (20.5-51.1); MCH 27.5 PG (27-31); MCHC 32.8 g/dL (33-37); MCV 83.8 FL (81-99); MONO# 1.36 X1000 (0.11-0.59); MONO% 11.8 % (1.7-9.3); MPV 10.2 FL (7.4-10.4); NEUT% 62.7 % (42.2-75.2); PLT 450 X1000 (130-400)
[2016-07-27 05:06] LABS: AGAP 11; BUN 6 mg/dL (8-22); CALCIUM 7.9 mg/dL (8.8-10.2); CHLORIDE 108 mmol/L (98-107); COSMO 277; POTASSIUM 3.6 mmol/L (3.5-5.1); SODIUM 139 mmol/L (136-145); TCO2 20 mmol/L (25-35)
[2016-07-27] MEDS: NORVASC PO SCH (08:17)
[2016-07-27] MEDS ORDERED: DIPRIVAN 1% ONE (09:13)
[2016-07-27] MEDS: PROTONIX 80 MG in NS 80 ML IV SCH (09:25)
[2016-07-27] MEDS: APRESOLINE IV PRN (11:14)
--- NOTE | 2016-07-27 12:09 | PROGRESS NOTE ---
DATE: 07/27/2016 SUBJECTIVE: A 56-year-old, male, transferred from [facility] secondary to profound symptomatic anemia suspicious for GI bleed. EGD showed erosive mass in the distal esophagus with CAT scan showed a mass possibly coming from the stomach in the fundal area extending all the way up to the distal esophagus. There is also associated adenopathy intra- abdominal, some nodes noted in the mediastinum, another node noted in the liver. Patient is now tolerating some diet. He has been provided with Protonix drip, IV antibiotics. His hemoglobin has been dropping slowly though his vitals are stable and there is no indication to transfuse at this time. The patient requested information about discharge planning and I have advised him to study all his options before going home. We will for now transfer to the floor. OBJECTIVE: Temperature 99.5 degrees, pulse 92, respiratory rate 19, blood pressure 143/96, saturating 100% on room air.HEENT: Head atraumatic, normocephalic. Pupils reactive to light. Nose and throat clear. Neck: Supple. Abdomen: Epigastric tenderness. Bowel sounds present. Lungs: Clear bilaterally. Heart: S1, S2 present. Regular rate and rhythm. Extremities: No edema. No calf tenderness. Neurologic: Awake, alert, oriented x3. No asterixis. Psychiatric: Anxious. LABS: White blood cell count 11.4, with a hemoglobin of 8.8, hematocrit 26.8, and platelets of 450,000. Sodium 139, potassium 3.6, chloride 108, carbon dioxide 20, BUN of 6 and creatinine of 1. Glucose 136. Hepatitis analysis shows reactivity for hepatitis C antibody. A CT of the chest, abdomen and pelvis shows a large mass at the fundus of the stomach with apparent extension into the distal esophagus and possible extension into the more distal stomach. There is direct extension of the mass into the soft tissues around the fundus of the stomach with nodularity but distention includes the superior pancreatic region at the midline and to the left of midline. There is a probable small metastatic lesion in the left lobe of the liver and enlarged lymph nodes superior mediastinum on the right possibly related to metastasis. APPRECIATION AND PLAN: 1. Fundal mass with extensive metastases. 2. Grade D erosive esophagitis. 3. Duodenitis. 4. Possibly esophageal varices. 5. Acute blood-loss anemia. 6. Likely chronic alcoholic liver disease. 7. Polysubstance abuse. 8. Hepatitis C virus positivity. DISCUSSION: Patient has improved clinically. He has not reported of gross GI bleed. His hemoglobin and hematocrit though continues though slowly. He might require a transfusion of packed red blood cells even later today. However he is tolerating diet. He is afebrile, asymptomatic. Will discuss case with KARI Preciado. For now he needs to be on Protonix drip, serial exams, serial hemoglobin and hematocrit and transfuse as needed. Can move to floor.
--- NOTE | 2016-07-27 12:42 | CONSULTATION ---
DATE OF CONSULTATION: 07/27/2016 CHIEF COMPLAINT: Distal esophageal and gastric tumor. HISTORY: This is a 56-year-old black male admitted with some nausea, vomiting, abdominal pain, dark stools, who was evaluated by Dr. Arauz. EGD showed a distal esophageal tumor that radiates into the stomach. Biopsies were taken. Results are pending. CT scan shows the mass noted above as well as some extension outside the stomach, possible adenopathy and possible liver metastasis. PAST MEDICAL HISTORY: Pertinent for hypertension, alcohol abuse, tobacco abuse. Medical noncompliance. PREVIOUS SURGERIES: Carpal tunnel syndrome. MEDICATIONS: He is suppose to take a blood pressure tablet at home but does not take it. ALLERGIES: He says he is allergic to codeine. SOCIAL HISTORY: He lives alone. He smokes a pack a day. He drinks alcohol regularly. REVIEW OF SYSTEMS: As noted above. PHYSICAL EXAMINATION: VITAL SIGNS: Temperature is 99.5 degrees, heart rate 92, respiratory 19, blood pressure 180/95. No cervical adenopathy. LUNGS: Bilateral breath sounds. HEART: Regular rate and rhythm. ABDOMEN is soft and nontender. No abdominal scars are noted. EXTREMITIES: He has pedal pulses. No peripheral edema. 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 LABORATORY DATA: White count 11,400. Hemoglobin 8.8, hematocrit 26.8. BUN is 6, creatinine is 1.0. CEA is 7.2. 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 I have been asked to place a port as well as a feeding jejunostomy. I have discussed this with him briefly. We will wait on the final path before proceeding.
[2016-07-27] MEDS: M.V.I.-12 10 ML, FOLIC ACID 1 MG, MAGNESIUM SULFATE 1 GM, THIAMINE 100 MG in NS 1,000 ML IV SCH (13:26)
[2016-07-27] MEDS: ATIVAN IM PRN ×2 (14:18→23:40)
[2016-07-28] MEDS: PROTONIX 80 MG in NS 80 ML IV SCH ×2 (02:09→12:51)
[2016-07-28] MEDS: ZOSYN 3.375 GM/NS 50 ML IV SCH ×3 (04:45→20:13)
[2016-07-28 05:24] LABS: MANUAL DIFF NEEDED? NO
[2016-07-28 05:43] LABS: BASO% 0.3 % (0.0-0.8); EOS# 0.91 X1000 (0.0-0.7); EOS% 7.6 % (0.0-10.0); HEMATOCRIT 27.1 % (42.0-52.0); LYMPH# 2.36 X1000 (1.2-3.4); LYMPH% 19.8 % (20.5-51.1); MCH 28.4 PG (27-31); MCHC 33.2 g/dL (33-37); MCV 85.5 FL (81-99); MONO# 1.68 X1000 (0.11-0.59); MONO% 14.1 % (1.7-9.3); MPV 9.9 FL (7.4-10.4); NEUT% 58.2 % (42.2-75.2); PLT 446 X1000 (130-400); RBC 3.17 XMIL (4.7-6.1)
[2016-07-28 06:13] LABS: AGAP 12; BUN 7 mg/dL (8-22); CALCIUM 8.2 mg/dL (8.8-10.2); CHLORIDE 105 mmol/L (98-107); COSMO 276; POTASSIUM 3.8 mmol/L (3.5-5.1); SODIUM 139 mmol/L (136-145); TCO2 22 mmol/L (25-35)
[2016-07-28] MEDS: NORVASC PO SCH (08:22)
--- NOTE | 2016-07-28 12:43 | PROGRESS NOTE ---
DATE: 07/28/2016 SUBJECTIVE: This is a 56-year-old, who was admitted on 07/25/2016, who has a history of hypertension, medical noncompliance, substance abuse and alcohol abuse, presented to the emergency room complaining of 2 weeks of abdominal pain, nausea, vomiting, and burning on urination. He has a history of alcoholism, as well as methamphetamine and marijuana use in the past. In the ER, he admits that he drinks about a six-pack twice a week. At any rate, he had a CT scan done with complaints of gastrointestinal bleeding and concern about potential for alcohol withdrawal. CT of abdomen and pelvis done on the . He has a large mass in the fundus of the stomach with apparently extension into the distal esophagus and possible extension into the more distal stomach, direct extension of the mass into the soft tissues to the fundus of the stomach with nodularity. Direct extension includes superior peripancreatic region at midline and left of midline. These are compatible with malignancy, probably metastatic with the lesions in the liver. Enlarged lymph nodes superior to the mediastinum in the right possibly related to metastatic tiny bilateral pleural effusions. No other discrete metabolic disease identified. OBJECTIVE: Vital Signs: On exam today, temp 98.4 degrees, pulse 96, respirations 22, blood pressure 147/88. Lungs: Clear in all lung eldridge. Cardiovascular exam: Regular rhythm and rate without murmur or S3. Abdomen: Soft. Skin: Warm and dry. : Good urine output. REVIEW OF LABS: White count 11,910, hematocrit 27, platelet count 446,000. Sodium 139, potassium 3.8, chloride 105, BUN 7, creatinine 0.9. ASSESSMENT AND PLAN: 1. Fundal mass of stomach with extensive metastasis, grade D erosive esophagitis and duodenitis. Possible esophageal varices. 2. Acute blood loss anemia suspect secondary to malignancy. 3. Likely chronic alcohol liver disease. 4. Polysubstance abuse history. 5. Hepatitis C virus positivity. No gross gastrointestinal bleeding by his report. Continue present therapy. Probably need oncology involved. Review of his orders: Norvasc 10 mg a day, Zosyn q. 8 hours, IV Protonix. Getting multivitamin. I will add thiamine, and probably would benefit from getting multivitamin in banana bag.
[2016-07-28] MEDS: M.V.I.-12 10 ML, FOLIC ACID 1 MG, MAGNESIUM SULFATE 1 GM, THIAMINE 100 MG in NS 1,000 ML IV SCH (15:44)
[2016-07-29] MEDS: PROTONIX 80 MG in NS 80 ML IV SCH ×3 (00:07→21:18)
[2016-07-29] MEDS: ZOSYN 3.375 GM/NS 50 ML IV SCH ×3 (03:55→21:18)
[2016-07-29 07:48] LABS: AGAP 11; BUN 7 mg/dL (8-22); CALCIUM 8.6 mg/dL (8.8-10.2); CHLORIDE 101 mmol/L (98-107); COSMO 268; MAGNESIUM 2.1 mg/dL (1.5-2.7); POTASSIUM 4.4 mmol/L (3.5-5.1); SODIUM 135 mmol/L (136-145); TCO2 23 mmol/L (25-35)
[2016-07-29] MEDS: APRESOLINE IV PRN (07:50)
[2016-07-29] MEDS: NORVASC PO SCH (09:34)
[2016-07-29] MEDS: M.V.I.-12 10 ML, FOLIC ACID 1 MG, MAGNESIUM SULFATE 1 GM, THIAMINE 100 MG in NS 1,000 ML IV SCH (14:35)
--- NOTE | 2016-07-29 16:49 | PROGRESS NOTE ---
DATE: 07/29/2016 SUBJECTIVE: He states he feels pretty good. Has some burning sensation in the upper anterior chest/larynx area. Eating pretty good. OBJECTIVE: Vital signs: Temperature 98 degrees, pulse 84, respirations 20, blood pressure 154/84. Lungs: Clear in all lung eldridge. Cardiovascular: Regular rhythm and rate without murmur or S3. Abdomen: Soft. Skin: Is warm and dry. : Urine output 1200 mL. LABORATORY: Reviewed from yesterday. Hematocrit was 27, hemoglobin 9, platelet count 446,000. Sodium 135, potassium 4.4, chloride 101, bicarb 23, BUN 7, creatinine 1.9. Liver functions okay. Blood sugar 136, 113, 104. Carcinoembryonic antigen was 7.2, range is 0.2 to 3.5. ASSESSMENT AND PLAN: 1. Fundal masses stomach with extensive metastasis, grade D erosive esophagitis, duodenitis, possible esophageal varices. 2. Acute blood loss anemia, suspect secondary to malignancy. 3. Likely chronic alcoholic liver disease. 4. Polysubstance abuse history. 5. Hepatitis C. PLAN: Continue present therapy. Dr. Eisenberg has seen. Evaluation, probable malignancy distal esophagus, proximal stomach and metastasis. Asked to place a port and feeding jejunostomy tube, which I think we will proceed next week. I do not see anything to change at this point. He is on Zosyn antibiotic. No growth from blood cultures on the . Urine culture no growth.
[2016-07-30] MEDS: ZOSYN 3.375 GM/NS 50 ML IV SCH ×3 (04:04→20:21)
[2016-07-30] MEDS: PROTONIX 80 MG in NS 80 ML IV SCH ×2 (05:51→16:46)
[2016-07-30 07:27] LABS: AGAP 9; BUN 10 mg/dL (8-22); CALCIUM 8.3 mg/dL (8.8-10.2); CHLORIDE 102 mmol/L (98-107); COSMO 270; POTASSIUM 4.1 mmol/L (3.5-5.1); SODIUM 135 mmol/L (136-145); TCO2 24 mmol/L (25-35)
[2016-07-30] MEDS: NORVASC PO SCH (08:47)
[2016-07-30] MEDS: M.V.I.-12 10 ML, FOLIC ACID 1 MG, MAGNESIUM SULFATE 1 GM, THIAMINE 100 MG in NS 1,000 ML IV SCH (14:32)
--- NOTE | 2016-07-30 15:28 | PROGRESS NOTE ---
DATE: 07/30/2016 SUBJECTIVE: Mr. Shay said he had eaten some [employer] for lunch, getting ready for tomorrow. Says he feels good. OBJECTIVE: Temperature 97, pulse 79, respirations 20, blood pressure 136/85. Lungs are clear in all lung eldridge. Cardiovascular exam, regular rhythm and rate without murmur or S3. Good urine output over 1600 mL. LABS: Sodium 135, potassium 4.2, chloride 102, bicarb 24, BUN 10, creatinine 0.8. ASSESSMENT AND PLAN: 1. Fundal mass, stomach with extensive metastases, grade 2D erosive esophagitis, duodenitis, possible esophageal varices. 2. Acute blood loss anemia, suspect secondary to malignancy. 3. Likely chronic alcoholic liver disease. 4. Polysubstance abuse history. 5. Hepatitis C. PLAN: Dr. Eisenberg has consulted and Dr. Arauz on the case. Possible malignancy of distal esophagus, proximal stomach metastasis. We plan to put a port in and a feeding jejunostomy and then proceed with treatment. I reviewed orders, I do not see changes.
[2016-07-31] MEDS: PROTONIX 80 MG in NS 80 ML IV SCH ×2 (02:58→11:46)
[2016-07-31] MEDS: ZOSYN 3.375 GM/NS 50 ML IV SCH ×3 (03:55→20:30)
[2016-07-31 06:47] LABS: MANUAL DIFF NEEDED? NO
[2016-07-31 06:56] LABS: BASO% 0.9 % (0.0-0.8); EOS# 0.87 X1000 (0.0-0.7); EOS% 8.5 % (0.0-10.0); HEMATOCRIT 30.7 % (42.0-52.0); HEMOGLOBIN 10.3 g/dL (14.0-18.0); IMM GRAN# 0.04 X1000 (0.0-0.04); IMM GRAN% 0.4 % (0.0-0.5); LYMPH# 1.89 X1000 (1.2-3.4); LYMPH% 18.5 % (20.5-51.1); MCH 28.2 PG (27-31); MCHC 33.6 g/dL (33-37); MCV 84.1 FL (81-99); MONO# 1.36 X1000 (0.11-0.59); MONO% 13.3 % (1.7-9.3); MPV 9.9 FL (7.4-10.4); NEUT% 58.4 % (42.2-75.2); PLT 452 X1000 (130-400); RBC 3.65 XMIL (4.7-6.1)
[2016-07-31] MEDS ORDERED: NS 1,000 ML ONE (07:32)
[2016-07-31 12:29] LABS: HCV BY PCR SEE COMMENTS (()); HCV CHARGE YES
[2016-07-31] MEDS ORDERED: HEPARIN ONE (12:43)
[2016-07-31] MEDS ORDERED: XYLOCAINE 1%/EPI 1:100,000 ONE (12:43)
[2016-07-31] MEDS ORDERED: NS 250 ML ONE (12:43)
[2016-07-31] MEDS ORDERED: SODIUM CHLORIDE 0.9% ONE (12:43)
[2016-07-31] MEDS ORDERED: KEFZOL ONE (12:44)
[2016-07-31] MEDS ORDERED: DIPRIVAN 1% ONE (13:59)
[2016-07-31] MEDS ORDERED: FENTANYL ONE (13:59)
[2016-07-31] MEDS ORDERED: MORPHINE ONE ×2 (14:31→14:38)
[2016-07-31] MEDS ORDERED: QUELICIN (DOSE) ONE (14:47)
[2016-07-31] MEDS ORDERED: DECADRON ONE (14:47)
[2016-07-31] MEDS ORDERED: LR 1,000 ML ONE (14:47)
[2016-07-31] MEDS ORDERED: ANESTHESIA PB SET 88 IN 5742 ONE (14:47)
[2016-07-31] MEDS ORDERED: NEO-SYNEPHRINE ONE (14:47)
[2016-07-31] MEDS ORDERED: ZEMURON ONE (14:47)
[2016-07-31] MEDS ORDERED: XYLOCAINE-MPF 2% ONE (14:47)
[2016-07-31] MEDS: DILAUDID ONE ×4 (14:50→15:13)
[2016-07-31] MEDS: NORVASC PO SCH (15:44)
--- NOTE | 2016-07-31 15:44 | OPERATIVE NOTE ---
PROCEDURE DATE: 07/31/2016 PROCEDURE PERFORMED: Right subclavian port placement; Witzel feeding jejunostomy (#12 red Ferrer catheter). SURGEON: Bhaskar Eisenberg MD. AIRCREWMAN: Tea Du RN. PREOPERATIVE DIAGNOSIS: Cancer of the esophagus, stomach, with liver metastases. POSTOPERATIVE DIAGNOSIS: Cancer of the esophagus, stomach, with liver metastases. DESCRIPTION OF PROCEDURE: Satisfactory general endotracheal anesthesia was achieved. The right side of the neck and upper anterior chest were prepped and draped in a sterile fashion. We placed the patient in Trendelenburg. We anesthetized the skin and developed subcutaneous pocket that would admit the power port. We then accessed the right subclavian vein on the first stick, passed the guidewire under fluoroscopic guidance in the superior vena cava. We then passed the dilator and introducer sheath over the guidewire, removed the dilator and guidewire, and introduced the 9.6-Serbian single-lumen silicone catheter through the sheath into the superior vena cava to the junction of right atrium. We cut the catheter to the appropriate length, passed it on the stem of the port, locked it in position. We placed the port within the pocket. We used a 2-0 silk to secure the soft tissue to the hole in the rim of the port. We irrigated out the port pocket with Kefzol-impregnated saline, placed 3-0 Polysorb to the subcutaneous tissue. We accessed the port. It aspirated and irrigated easily. We gave the patient 4 mL of Hep-Lock. We then closed the skin with a 4-0 Polysorb subcuticular stitch. Telfa and a sterile OpSite was applied. The patient was then placed flat. The abdomen was then prepped and draped in a sterile fashion. I re-gowned and gloved. I made a midline incision in the epigastrium, carried our incision through the subcutaneous tissue through the midline fascia. Upon entering the abdominal cavity the cancer was palpated in the cardia of the stomach and in the mesentery toward the liver. We passed a 12 red Ferrer catheter through the abdominal wall in the left mid abdomen. We identified the ligament of Treitz and went for about 20 cm distal. We then made a 3-0 silk pursestring. We introduced the 12 red Ferrer catheter through an enterotomy inside the pursestring and passed the catheter distally. We then secured that pursestring stitch and then placed some 3-0 silks in a Lembert type fashion forming a Witzel tunnel. After tunneling it for a ways in the serosa of the bowel we then lifted the bowel up to the anterior abdominal wall and secured the bowel to the anterior abdominal wall with 3-0 silks. This thereby excluded the catheter completely from visualization. We secured the catheter at the exit site in the skin with a 3-0 nylon stitch at the skin at the exit site. We then plugged the catheter. Hemostasis was satisfactory. We closed the peritoneum with a 2-0 chromic, closed the fascia with a running #1 Maxon, irrigated the subcutaneous tissue, closed the skin with a 4-0 Monocryl subcuticular stitch. An island dressing was applied. He tolerated it well. He was sent to the recovery room in satisfactory condition. [facility]
[2016-07-31] MEDS: NS 1,000 ML IV SCH (15:45)
[2016-07-31] MEDS: M.V.I.-12 10 ML, FOLIC ACID 1 MG, MAGNESIUM SULFATE 1 GM, THIAMINE 100 MG in NS 1,000 ML IV SCH (16:12)
--- NOTE | 2016-07-31 16:25 | PROGRESS NOTE ---
DATE: 07/31/2016 SUBJECTIVE: Patient reports feeling good. OBJECTIVE: Vital Signs: Temperature 98.2, heart rate 88, respiratory rate 18, blood pressure 161/95. O2 saturation 100% on room air. General: This is a 56-year-old, male, lying in bed, in no acute distress. HEENT: Head is normocephalic, atraumatic. Anicteric sclerae and pale conjunctivae. Mucous membranes moist. Neck: Supple. No JVD noted. No carotid bruits. No lymphadenopathy. No thyromegaly. Cardiovascular exam: S1-S2 heard. No murmurs, gallops, or rubs. Regular rate and rhythm. Respiratory: Clear bilaterally to auscultation. No work of breathing or using accessory muscles. Abdomen: Soft, mildly tender to palpation in the epigastric area. No signs of peritoneal irritation. Bowel sounds present. No organomegaly. Extremities: No clubbing, cyanosis, or edema. Peripheral pulses present in both legs. Neurological: Patient is alert and oriented x3. Moves 4 extremities. LABORATORY DATA: White cell count 10.24, hemoglobin 10.3, hematocrit 30.7, platelets 452. ASSESSMENT: 1. Stomach cancer with extensive metastasis and erosive esophagitis. 2. Anemia of acute blood loss. 3. Chronic alcoholic liver disease. 4. History of polysubstance abuse. 5. Hepatitis C. PLAN: Because of this possible malignancy of the distal esophagus and proximal stomach, Dr. Arauz from GI has been consulted. She has consulted for Dr. Eisenberg for placement of port today. Then, they are planning to place a feeding jejunostomy and then proceed with treatment. After that we will see what GI has to say. The hemoglobin is so far stable. We will continue with the same management.
[2016-07-31] MEDS: MORPHINE IV PRN (23:09)
[2016-08-01] MEDS: PROTONIX 80 MG in NS 80 ML IV SCH ×3 (00:10→22:26)
[2016-08-01] MEDS: NS 1,000 ML IV SCH ×2 (01:10→22:14)
[2016-08-01] MEDS: ZOSYN 3.375 GM/NS 50 ML IV SCH ×3 (04:20→22:26)
[2016-08-01] MEDS: MORPHINE IV PRN ×5 (05:44→21:06)
[2016-08-01] MEDS: NORVASC PO SCH (09:34)
[2016-08-01] MEDS: M.V.I.-12 10 ML, FOLIC ACID 1 MG, MAGNESIUM SULFATE 1 GM, THIAMINE 100 MG in NS 1,000 ML IV SCH (13:59)
--- NOTE | 2016-08-01 16:18 | PROGRESS NOTE ---
DATE: 08/01/2016 SUBJECTIVE: Patient is feeling fine. Reports tolerating clear liquid diet. No episodes of choking. No abdominal pain. OBJECTIVE: Vital Signs: Temperature 97.5, heart rate 77, respiratory rate 20, blood pressure 150/85, O2 saturation 97% on room air. General Examination: This is a 56-year-old, male, lying in bed, in no acute distress. HEENT: Head is normocephalic, atraumatic. Anicteric sclerae and pale conjunctivae. Mucous membranes moist. Neck: Supple. No JVD noted. No carotid bruits. No lymphadenopathy. No thyromegaly. Cardiovascular: S1, S2 heard. No murmurs, gallops, or rubs. Regular rate and rhythm. Respiratory: Clear bilaterally to auscultation. No work of breathing or using accessory muscles. Abdomen: Soft, nontender to palpation. Bowel sounds present. No organomegaly. Jejunostomy tube present. Extremities: No clubbing, cyanosis, or edema. Peripheral pulses present in both legs. Neurological: Patient is alert and oriented x3. Able to move 4 extremities. Cranial nerves 2-12 grossly normal. LABORATORY DATA: There are no labs from today. ASSESSMENT: 1. Stomach cancer with extensive metastases and erosive esophagitis. 2. Anemia of acute blood loss. 3. Chronic alcoholic liver disease. 4. History of polysubstance abuse. 5. Hepatitis C. PLAN: Patient had a Port-A-Cath in. Jejunostomy tube placed per Dr. Eisenberg. At this time, we are basically waiting recommendations from GI to see what will be the next step. Patient is tolerating liquid diet very well, so we are going to advance as tolerated.
[2016-08-01] MEDS: TYLENOL PO PRN (20:10)
[2016-08-02] MEDS: MORPHINE IV PRN ×2 (03:06→07:22)
[2016-08-02] MEDS: ZOSYN 3.375 GM/NS 50 ML IV SCH (04:07)
[2016-08-02] MEDS: NS 1,000 ML IV SCH (04:08)
[2016-08-02] MEDS: PROTONIX 80 MG in NS 80 ML IV SCH (05:53)
[2016-08-02 07:17] VITALS: BP 149/96
[2016-08-02] MEDS: NORVASC PO SCH (08:43)
--- NOTE | 2016-08-02 21:47 | DISCHARGE SUMMARY ---
ADMISSION DATE: 07/25/2016 DISCHARGE DATE: 08/02/2016 CONSULTATION: 1. Ashley Arauz M.D., Gastroenterology. 2. Apryl Metz M.D., Hematology/Oncology. 3. Bhaskar Eisenberg M.D., General Surgery. PERTINENT PROCEDURES: 1. Chest, abdomen, and pelvis CT showed a large mass at the fundus of the stomach with apparent extension into the distal esophagus and possible extension into the more distal stomach, direct extension of the mass into the soft tissue around the fundus of the stomach with nodularity. The direct extension includes superior peripancreatic region, at the midline and left of midline. Findings are consistent with malignancy, probable small metastatic lesion in the left lobe of the liver, enlarged lymph nodes at the superior mediastinum on the right possibly related to metastasis, tiny bilateral pleural effusions. No other discrete metastases identified in the thorax. 2. EGD performed by Dr. Arauz with biopsy and control of bleeding. 3. Colonoscopy performed by Dr. Arauz that showed sigmoid diverticulosis, internal and external hemorrhoids. 4. Right subclavian port and a Witzel feeding jejunostomy. 5. Red Harry Catheter performed by Dr. Eisenbegr. DISCHARGE DIAGNOSES: 1. 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 Bhaskar Eisenberg. Patient has an appointment with Dr. Metz for further treatment options as well as palliative care followup. 2. Anemia of acute blood loss secondary to metastasis. 3. Chronic alcohol and liver disease, aware. 4. History of polysubstance abuse, aware. 5. Hepatitis C. 6. Upper GI bleed, resolved status post successful cauterization. 7. Erosive gastritis, duodenitis and suggestion of Richmond's esophagus on PPI. HOSPITAL COURSE: Mr. Shay is an 52-year-old, male with a history of hypertension, medical noncompliance, substance abuse, alcohol abuse, who presented to the emergency room with 2 weeks of abdominal pain, nausea, vomiting and burning upon urination. He said that the burning on urination started first and within about 2 days he developed nausea and started vomiting. The patient started taking Pepto-Bismol and after a few days his stools turned black. He denied any prior black or bloody stools. The patient continued to eat and tolerate food in between bouts of nausea and vomiting. He does have a history of alcoholism as well as methamphetamine and marijuana use. The patient admitted in the ED to drinking a 6 pack twice a week, however, he also admitted to doing quite a bit more than that. No history of any GI testing. He had a hemoglobin of 7.5, hematocrit of 23, and patient did have guaiac-positive stools. His urine drug screen was positive for amphetamines, methamphetamine and cannabinoids. The patient was admitted to the ICU. He was started on a Protonix drip. His hemoglobin and hematocrit were carefully monitored. Dr. Arauz was consulted. With the patient's history of alcohol abuse he was started on thiamin and banana bags, and watched closely for withdrawal. Dr. Arauz performed an EGD and colonoscopy. She did find esophagitis. There was a distal esophageal mass, possible Richmond's esophagus and she cauterized the bleeding area, and hemostasis was achieved. Colonoscopy just showed some diverticulosis, internal and external hemorrhoids. She suggests that a CT of the chest, abdomen and pelvis due to the mass with a HEM/ONC consultation for staging. Patient's CT did show a large mass at the fundus of the stomach with extension into the distal esophagus and possible extension into the more distal stomach with a mass into the soft tissue of the fundus of the stomach with nodularity and a small metastatic lesion in the left lobe of the liver. The specimen did show adenocarcinoma on both esophagus biopsies. The patient did receive 2 units of packed red blood cells. He was also started on and initiated on folic acid. Hematology did suggest a palliative care consultation. It was suggested that patient have port placement and PEJ. Dr. Eisenberg was consulted. He did the right subclavian port along with the J tube and for future treatments for both. The patient was tolerating a GI soft diet. He was initiated on a clear liquid diet. He again was tolerating that well. He was advanced to full liquids. However once patient, after having his appointment with Dr. Apryl Metz, he may require radiation to the stomach area which was the reason for the J-tube placement. He is not receiving any feedings from there at this time but in the near future they went ahead and placed those along with his port. He has an appointment with her on Saturday of next week and they will discuss further treatment options. The palliative care team did speak with Mr. Shay. They did talk to him about assisting in symptom management as an outpatient. The patient did agree to follow-up visits with palliative care. The daughter spoke with them and voiced concerns given the patient's history of drug use. However it has been discussed thoroughly with the patient about his prognosis and the need for cessation for illicit drugs, tobacco and alcohol. Again, patient is tolerating a full liquid diet. He was to continue to advance as tolerated and further options for his treatment will be discussed with Dr. Apryl Metz on Saturday. VITAL SIGNS AT TIME OF DISCHARGE: Temperature is 98 degrees, heart rate 86, respirations 19, blood pressure is 149/96, O2 is 97% on room air. DISCHARGE DIET: Full liquids. DISCHARGE MEDICATIONS: 1. Norvasc 10 mg p.o. daily. 2. Mccormick 5/325, 1 each p.o. q.6 p.r.n. 3. Prilosec 10 mg p.o. daily. FOLLOWUP: The patient is being discharged back to his residence that is at a hotel with a roommate. He does have daughters and other family members who are also involved in his care. Again they do show concerns with his history of drug use, alcohol and tobacco. Again it has been discussed cessation, education and the means to quit. Patient can return to the ED for any worsening of symptoms. He can follow up with Dr. Apryl Metz in 1 week. He will follow up with Dr. Arauz in 2-3 weeks. He can follow up with Dr. Reji Cruz in 7-10 days and he will also have follow-up visits with the Palliative Care team. TOTAL TIME SPENT ON DISCHARGE: 41 minutes. Dictated by MALKA Solorzano for Allen Chapa MD
== END 2016-08-02 13:36 | disposition home or self-care (01) | DRG 327 ==
LOC: P.ED 05:53 → ICU 08:43 → 3N 07-28 13:17
PROVIDERS: ATTEND Internal Medicine
PROC: 30233N1 Transfusion of Nonautologous Red Blood Cells into Peripheral Vein, Percutaneous Approach (ICD-10-PCS; 2016-07-25)
PROC: 0DB48ZX Excision of Esophagogastric Junction, Via Natural or Artificial Opening Endoscopic, Diagnostic (ICD-10-PCS; principal; 2016-07-26 07:07)
PROC: 0DB18ZX Excision of Upper Esophagus, Via Natural or Artificial Opening Endoscopic, Diagnostic (ICD-10-PCS; 2016-07-26 07:07)
PROC: 0DJD8ZZ Inspection of Lower Intestinal Tract, Via Natural or Artificial Opening Endoscopic (ICD-10-PCS; 2016-07-26 07:07)
PROC: 0JH60XZ Insertion of Tunneled Vascular Access Device into Chest Subcutaneous Tissue and Fascia, Open Approach (ICD-10-PCS; 2016-07-31)
PROC: 02HV33Z Insertion of Infusion Device into Superior Vena Cava, Percutaneous Approach (ICD-10-PCS; 2016-07-31)
PROC: 0DH60UZ Insertion of Feeding Device into Stomach, Open Approach (ICD-10-PCS; 2016-07-31 12:56)
DX: C16.0 Malignant neoplasm of cardia (principal); C78.7 Secondary malignant neoplasm of liver and intrahepatic bile duct; E46 Unspecified protein-calorie malnutrition; K70.9 Alcoholic liver disease, unspecified; D62 Acute posthemorrhagic anemia; K22.8 Other specified diseases of esophagus; F15.10 Other stimulant abuse, uncomplicated; I10 Essential (primary) hypertension; E53.8 Deficiency of other specified B group vitamins; K29.70 Gastritis, unspecified, without bleeding; K22.9 Disease of esophagus, unspecified; B19.20 Unspecified viral hepatitis C without hepatic coma; K20.8 Other esophagitis; K44.9 Diaphragmatic hernia without obstruction or gangrene; K29.60 Other gastritis without bleeding; K31.819 Angiodysplasia of stomach and duodenum without bleeding; K22.70 Barrett's esophagus without dysplasia; K57.30 Diverticulosis of large intestine without perforation or abscess without bleeding; K29.80 Duodenitis without bleeding; K64.1 Second degree hemorrhoids; F12.10 Cannabis abuse, uncomplicated; F10.20 Alcohol dependence, uncomplicated; F17.210 Nicotine dependence, cigarettes, uncomplicated; Z79.899 Other long term (current) drug therapy; Z91.19 Patient's noncompliance with other medical treatment and regimen; Z68.29 Body mass index [BMI] 29.0-29.9, adult
CPT/HCPCS: 36415; 71010; 71260; 74177; 77001; 80048; 80053; 80061; 80074; 81001; 82150; 82270; 82378; 82607; 82728; 82746; 83540; 83550; 83690; 83735; 84439; 84443; 85014; 85018; 85025; 85027; 85610; 86850; 86900; 86901; 86920; 87040; 87088; 87522; 88305; 88313; 93005; 96365; 96366; C1788; C9113; G0477; J0330; J0360; J0690; J1100; J1170; J1756; J2060; J2270; J2370; J2543; J3010; J3411; J3475; J7030; J7050; J7120; P9016; Q9967; S0164

== ENCOUNTER 2016-09-22 19:57 | Emergency (ER) ==
[2016-09-22 20:05] VITALS: BP 122/79
[2016-09-22] MEDS ORDERED: SEPTRA DS PO ONE (20:42)
--- NOTE | 2016-09-22 20:49 | PROVIDER DOCUMENTATION ---
HPI-Abdominal Pain/GI Problem - General Chief Complaint: General Adult Stated Complaint: GENERAL Time Seen by Provider: 09/22/16 20:13 Source: patient Allergies/Adverse Reactions: Patient Allergies Allergy/AdvReac Type Severity Reaction Status Date / Time codeine [Codeine] Allergy Intermediate ITCHING Verified 09/22/16 20:39 Home Medications: Home Medication List Medication Instructions Recorded Confirmed Last Taken Type Amlodipine Besylate [Norvasc] 10 mg PO DAILY 06/20/15 09/22/16 09/22/16 13:00 History Hydrocodone/APAP 5 mg/325 mg 1 each PO Q6H PRN PRN #30 tablet 08/02/16 09/22/16 09/22/16 13:00 Rx [Massey-5] Omeprazole [Prilosec] 40 mg PO DAILY #90 capsule. 08/02/16 09/22/16 09/22/16 13:00 Rx Cephalexin [Keflex] 500 mg PO BID #14 capsule 09/22/16 Unknown Rx Sulfamethoxazole/Trimethoprim 1 each PO BID #14 tablet 09/22/16 Unknown Rx [Bactrim Ds Tablet] - History of Present Illness-ABD Nature of Presenting Problems: 56 y/o BM presents to ED with c/o feeding tube displacement x 1 day. Pt states it came out about 7-8 hours ago. Reports that it was emplaced 6 weeks ago for emergency purposes during his tx of throat cancer. states it has not had to be used; states he flushes it with saline daily. His stitch came out of the skin yesterday, and he pointed that out to his surgeon, who was seeing him for check of his port. They stated to keep an eye on the tube. Denies any abd. pain, N/V /D/C. Review of Systems - Adult - REVIEW OF SYSTEMS - ADULT Constitutional: reports: no symptoms reported. denies: chills, fever Eyes: reports: no symptoms reported. denies: blurred vision, double vision Ears, Nose, Mouth & Throat: reports: no symptoms reported. denies: ear pain, nose pain Cardiovascular: reports: no symptoms reported. denies: chest pain, palpitations Respiratory: reports: no symptoms reported. denies: dyspnea on exertion, shortness of breath Gastrointestinal: reports: see HPI. denies: abdominal pain, nausea, vomiting Genitourinary: reports: no symptoms reported. denies: dysuria, frequency Musculoskeletal: reports: no symptoms reported. denies: joint pain, joint swelling Integumentary: reports: no symptoms reported. denies: nail changes, rash Neurological: reports: no symptoms reported. denies: numbness, paresthesia Psychiatric: reports: no symptoms reported Endocrine: reports: no symptoms reported. denies: cold intolerance, heat intolerance Hematologic/Lymphatic: reports: no symptoms reported. denies: easy bruising, prolonged bleeding Allergic/Immunologic: reports: no symptoms reported All Other Systems: Reviewed and Negative Past History - Adult - PAST MEDICAL HISTORY-ADULT Review of Records: reports: Nursing Assessment Review, Medications Reviewed Major Childhood Illnesses: reports: denies history Cardiovascular: reports: HTN Respiratory: reports: denies history Gastrointestinal: reports: denies history Obstetrical/Gynecological: reports: denies history Genitourinary: reports: denies history Musculoskeletal: reports: arthritis, other (lower back pain/ carpal tunnel release/) Neurological: reports: denies history Psychiatric: reports: denies history Endocrine/Immune: reports: denies history Other Conditions: reports: denies history - PRIOR SURGERIES/PROCEDURES Surgical/Procedure History: reports: none - PRIOR HOSPITALIZATIONS Prior Hospitalizations: reports: for other non-related - IMMUNIZATION STATUS Childhood Immunizations: See Nurse Assessment Flu Vaccine: See Nurse Assessment - FAMILY HISTORY Family History: reviewed, not pertinent - SOCIAL HISTORY Smoking: quit less than 1 year Physical Exam-General - PHYSICAL EXAM-ADULT Initial Vital Signs Reviewed: Yes - CONSTITUTIONAL General Appearance: alert, mild distress - EYES Eyes: pink conjunctivae - HEAD, EARS, NOSE, MOUTH & THROAT HENMT: normocephalic/atraumatic, moist mucous membranes - NECK Neck: normal inspection - RESPIRATORY Respiratory: lungs clear, normal breath sounds. negative: crackles, rales, rhonchi, stridor, wheezing - CARDIOVASCULAR Cardiovascular: regular rate, rhythm. negative: bradycardia, tachycardia - GASTROINTESTINAL (ABDOMEN) Abdominal Exam: normal bowel sounds, non tender, soft, other (abscess at feeding tube site with mild induration; small amount of purulent drainage present). negative: distended, guarding, rigid, McBurney's point tenderness, Miller's sign - MUSCULOSKELETAL Back Exam: normal inspection Extremity: normal gait - SKIN Integumentary: normal color, normal turgor, warm/dry, other (see above) - NEUROLOGIC Neurologic: negative: aphasia - PSYCHIATRIC Psych/Mental Status: normal mood/affect, normal thought content, normal thought process, oriented x 3 Progress - XRAY 1 XRAY Study: Chest, Abdomen XRAY Interpretation: NAD Departure - Departure Time of Disposition Order: 20:48 DIAGNOSIS: Abscess Feeding tube dysfunction Qualifiers: Encounter type: initial encounter Qualified Code(s): T85.598A - Other mechanical complication of other gastrointestinal prosthetic devices, implants and grafts, initial encounter Disposition: HOME 01 Certified Medical Emergency: Emergent Condition: Stable Additional Instructions: Follow up with your surgeon, or the GI specialist for recheck on Saturday. Return to ED if symptoms get worse. Take medications as directed. Keep wound clean and covered. ED Follow Up Instructions: You have been treated by a care provider in the Emergency Department. These instructions are being provided to you so you can have an understanding of how to care for yourself upon discharge. Upon discharge from the Emergency Department, you are responsible for making arrangements for follow-up care by a physician of your choice. Take all prescribed medications as directed. Return to the Emergency Department immediately for any new or worsening symptoms. You may call the Physician Referral phone number at [phone] to obtain a list of Physicians who are taking new patients. Prescriptions: Sulfamethoxazole/Trimethoprim [Bactrim Ds Tablet] 1 each PO BID #14 tablet Cephalexin [Keflex] 500 mg PO BID #14 capsule Referrals: None,PCP [Primary Care Provider] - Arpan Mckenna MD [STAFF PHYSICIAN] - Attestation - Physician/ CARLOS ALBERTO Attestation Patient care was provided by Advanced Practice Provider:: Yes Advanced Practice Provider:: Reyna Irizarry Advanced Practice Provider documentation review:: The Mid-level provider documentation, treatment plan and medical decision making was reviewed by the physician who agrees with all treatment and medical decision making by the P.
--- NOTE | 2016-09-23 08:40 | Diag Imaging Result Document ---
PROCEDURE NAME: FLAT/UPRIGHT ABD/1 VIEW CHEST - 09/22/2016 FLAT AND UPRIGHT ABDOMEN: FINDINGS: There is stool in the rectum. There is no evidence of bowel obstruction, organomegaly or mass. IMPRESSION: Constipation. PA CHEST: FINDINGS: There are old rib fractures on the left. Compared to 07/25/2016, there has been no significant change other than placement of a right Port-A-Cath. IMPRESSION: No acute disease.
== END 2016-09-22 21:11 | disposition home or self-care (01) ==
LOC: ED 19:57
DX: K94.23 Gastrostomy malfunction (principal); L02.211 Cutaneous abscess of abdominal wall; I10 Essential (primary) hypertension; M19.90 Unspecified osteoarthritis, unspecified site; Z79.899 Other long term (current) drug therapy; Z87.891 Personal history of nicotine dependence
CPT/HCPCS: 74022; 87070; 87077

== ENCOUNTER 2016-09-24 16:16 | Emergency (ER) ==
[2016-09-24 17:00] VITALS: BP 138/94
== END 2016-09-24 17:20 | disposition home or self-care (01) ==
LOC: ED 16:16
DX: K94.29 Other complications of gastrostomy (principal)

== ENCOUNTER 2016-10-11 19:20 | Emergency (ER) ==
[2016-10-11 19:40] VITALS: BP 159/112
[2016-10-11 20:02] LABS: MANUAL DIFF NEEDED? NO
[2016-10-11 20:18] LABS: BASO% 1.6 % (0.0-0.8); EOS# 0.45 X1000 (0.0-0.7); EOS% 8.2 % (0.0-10.0); HEMOGLOBIN 11.7 g/dL (14.0-18.0); LYMPH# 2.05 X1000 (1.2-3.4); LYMPH% 37.3 % (20.5-51.1); MCH 28.1 PG (27-31); MCHC 34.4 g/dL (33-37); MCV 81.7 FL (81-99); MONO# 0.77 X1000 (0.11-0.59); MPV 10.9 FL (7.4-10.4); NEUT% 38.9 % (42.2-75.2); PLT 224 X1000 (130-400); RBC 4.16 XMIL (4.7-6.1)
[2016-10-11] MEDS ORDERED: ULTRAM PO ONE (20:59)
--- NOTE | 2016-10-11 21:04 | PROVIDER DOCUMENTATION ---
HPI-General Adult - General Chief Complaint: Extremity Pain Stated Complaint: JOINT PAIN Time Seen by Provider: 10/11/16 19:33 Source: patient Allergies/Adverse Reactions: Patient Allergies Allergy/AdvReac Type Severity Reaction Status Date / Time codeine [Codeine] Allergy Intermediate ITCHING Verified 10/11/16 20:26 Home Medications: Home Medication List Medication Instructions Recorded Confirmed Last Taken Type Amlodipine Besylate [Norvasc] 10 mg PO DAILY 06/20/15 10/11/16 10/11/16 13:00 History Hydrocodone/APAP 5 mg/325 mg 1 each PO Q6H PRN PRN #30 tablet 08/02/16 10/11/16 10/11/16 13:00 Rx [[facility]-5] Omeprazole [Prilosec] 40 mg PO DAILY #90 capsule. 08/02/16 10/11/16 10/11/16 13:00 Rx Escitalopram Oxalate [Lexapro] 10 mg PO DAILY 10/11/16 10/11/16 10/11/16 13:00 History Ondansetron HCl [Zofran] 8 mg PO 4XDAY PRN PRN 10/11/16 10/11/16 10/10/16 07:00 History Tramadol [Ultram] 50 mg PO Q8HR #12 tablet 10/11/16 Unknown Rx - History of Present Illness -Gen Adult Nature of Presenting Problems: Pt. is 56 yom that presents with c/o joint pain on his right side only. Pt. denies any strenuous work or injury. Pt. reports a Hx of arthritis and states he is currently on Chemo for stomach CA. Pt. denies any other complaints at time of exam. Location of Pain/Injury: reports: hand(s) (Right), lower extremity (Right knee) . denies: head, face, mouth, neck, chest, upper extremity, abdomen, back, pelvis, genitalia, feet, upper body, lower body, generalized Pain Radiation: reports: no radiation Quality of Pain: reports: aching. denies: burning, cramping, dull, fullness, indigestion, pressure, sharp, stabbing, tearing, throbbing, tightness Severity: reports: mild. denies: moderate, severe Onset/Duration: reports: abrupt, last night Timing: reports: still present. denies: improving, gone now, resolved prior to arrival, intermittent, constant, changing over time, getting worse Context/Activities at Onset: reports: none. denies: recent emotional stress, recent physical stress, recent trauma history, possible bad food, cold exposure , out of country travel Modifying Factors: improves with: nothing Associated Symptoms: reports: fatigue, joint pain, malaise. denies: anxiety, arm pain, back/neck pain, chest pain, constipation, cough, diaphoresis, diarrhea , dizziness, EENT symptoms, fever/chills, genitourinary problems, headaches, heartburn, loss of appetite, muscle aches, sinus congestion/drainage, nausea, rash, seizure, shortness of breath, sensory/motor loss, pain with inspiration, swelling/mass in abdomen, syncope, vomiting, weakness, trouble walking Similar Symptoms Previously?: No Recently seen or treated by another doctor?: No Review of Systems - Adult - REVIEW OF SYSTEMS - ADULT Constitutional: reports: see HPI. denies: chills, fever, fatique Eyes: reports: see HPI. denies: discharge, blurred vision, double vision Ears, Nose, Mouth & Throat: reports: see HPI. denies: ear pain, hearing loss, nose pain, loose teeth, mouth/dental pain, throat pain, throat swelling Cardiovascular: reports: see HPI. denies: chest pain, heart murmur, orthopnea, palpitations, syncope Respiratory: reports: see HPI. denies: cough, dyspnea on exertion, pleurisy, shortness of breath, wheezing Gastrointestinal: reports: see HPI. denies: abdominal pain, hematemesis, constipation, frequent heartburn, nausea, poor appetite, vomiting Genitourinary: reports: see HPI. denies: dysuria, discharge, hematuria, hesitency, urgency Musculoskeletal: reports: see HPI, joint pain. denies: bone pain, back pain, joint swelling, muscle aches, neck pain Integumentary: reports: see HPI. denies: hives, itching, rash, skin thickening Neurological: reports: see HPI. denies: ataxia, headache/migraines, numbness, seizure, tremors Psychiatric: reports: see HPI. denies: anxiety, depression, emotional problems , insomnia, panic attacks, suicidal thoughts Past History - Adult - PAST MEDICAL HISTORY-ADULT Review of Records: reports: Old Records Reviewed, Nursing Assessment Review, Medications Reviewed, Social history reviewed & non-contributory. Major Childhood Illnesses: reports: denies history Cardiovascular: reports: HTN Respiratory: reports: denies history Gastrointestinal: reports: denies history Obstetrical/Gynecological: reports: denies history Genitourinary: reports: denies history Musculoskeletal: reports: arthritis, other (lower back pain/ carpal tunnel release/) Neurological: reports: denies history Psychiatric: reports: denies history Endocrine/Immune: reports: denies history Other Conditions: reports: denies history - PRIOR SURGERIES/PROCEDURES Surgical/Procedure History: reports: none - PRIOR HOSPITALIZATIONS Prior Hospitalizations: reports: for other non-related - IMMUNIZATION STATUS Childhood Immunizations: See Nurse Assessment Flu Vaccine: See Nurse Assessment - FAMILY HISTORY Family History: reviewed, not pertinent - SOCIAL HISTORY Smoking: cigarettes, greater than 1 pack/day Provider spent 3-5 mins advising pt. on dangers of tobacco.: Discussed the need to stop smoking. Physical Exam-General - PHYSICAL EXAM-ADULT Initial Vital Signs Reviewed: Yes - CONSTITUTIONAL General Appearance: alert, mild distress, thin. negative: obese, anxious, lethargic, slow to respond, obtunded, combative - EYES Eyes: PERRL/EOMI, pink conjunctivae. negative: conjuctival exudate, scleral icterus, subconjunctival hemorrhage - HEAD, EARS, NOSE, MOUTH & THROAT HENMT: normocephalic/atraumatic, moist mucous membranes. negative: angioedema, frontal tenderness, maxillary tenderness - NECK Neck: non-tender, full range of motion, supple, normal inspection. negative: lymphadenopathy, trachial deviation, thyromegaly - RESPIRATORY Respiratory: lungs clear, normal breath sounds. negative: crackles, rales, rhonchi, stridor, wheezing - CARDIOVASCULAR Cardiovascular: normal peripheral pulses, regular rate, rhythm, no edema, no JVD , no murmur. negative: extra beats, friction rub, irregularly irregular - CHEST (BREASTS) Chest/Breast: deferred - GASTROINTESTINAL (ABDOMEN) Abdominal Exam: normal bowel sounds, non tender, soft. negative: distended, guarding, rigid, rebound, tenderness, hernia, mass - GENITOURINARY Male Genitalia: deferred Rectal Exam: deferred Hemoccult Exam: deferred - LYMPHATIC Lymphatic: no adenopathy. negative: axilla node tender, cervical node tenderness - MUSCULOSKELETAL Back Exam: normal inspection, no CVA tenderness, no vertebral tenderness. negative: ecchymosis, swelling, vertebral tenderness Extremity: normal range of motion, normal gait, normal inspection, tenderness ( Right hand and right knee). negative: deformity, erythema, inflammation, swelling Peripheral Pulses: radial (R): 2+, radial (L): 2+ - SKIN Integumentary: normal color, normal turgor, warm/dry. negative: cyanosis, diaphoresis, ecchymosis, erythema, jaundice, mottled, pallor, petechiae, purpura , rash, swelling, tenderness - NEUROLOGIC Neurologic: grossly normal, no motor/sensory deficits. negative: aphasia, facial droop, focal weakness, motor weakness, sensory deficit - PSYCHIATRIC Psych/Mental Status: normal mood/affect, normal thought content, normal thought process, oriented x 3. negative: anxious, paranoid, tearful Progress - PLAN OF CARE/RESULTS Progress/Plan/Lab Results: Discussed plan of care with patient. Patient agrees with plan and verbalizes understanding. Vital Signs Temp Pulse Resp BP Pulse Ox 10/11/16 19:36 98.0 F 88 18 159/112 100 codeine [Codeine] Allergy (Intermediate, Verified 10/11/16 20:26) ITCHING Amlodipine Besylate [Norvasc] 10 mg PO DAILY 06/20/15 Hydrocodone/APAP 5 mg/325 mg [[facility]-5] 1 each PO Q6H PRN PRN #30 tablet Omeprazole [Prilosec] 40 mg PO DAILY #90 capsule. 08/02/16 Escitalopram Oxalate [Lexapro] 10 mg PO DAILY 10/11/16 Ondansetron HCl [Zofran] 8 mg PO 4XDAY PRN PRN 10/11/16 Laboratory 10/11/16 19:50 WBC 5.50 RBC 4.16 L Hgb 11.7 L Hct 34.0 L MCV 81.7 MCH 28.1 MCHC 34.4 RDW Std Deviation 21.2 H Plt Count 224 MPV 10.9 H Immature Gran % (Auto) 0.0 Neut % (Auto) 38.9 L Lymph % (Auto) 37.3 [place] % (Auto) 14.0 H Eos % (Auto) 8.2 Baso % (Auto) 1.6 H Immature Gran # (Auto) 0.00 Neut # (Auto) 2.14 Lymph # (Auto) 2.05 [place] # (Auto) 0.77 H Eos # (Auto) 0.45 Baso # (Auto) 0.09 Orders Category Date Time Status CBC WITH ELECTRONIC DIFF [HEME] Stat Lab 10/11/16 19:50 Results SED RATE [HEME] Stat Lab 10/11/16 19:50 Results Tramadol [Ultram] Med 10/11/16 20:59 Discontinued 50 mg PO NOW ONE Laboratory Tests 10/11/16 19:50 WBC 5.50 RBC 4.16 L Hgb 11.7 L Hct 34.0 L MCV 81.7 MCH 28.1 MCHC 34.4 RDW Std Deviation 21.2 H Plt Count 224 MPV 10.9 H Immature Gran % (Auto) 0.0 Neut % (Auto) 38.9 L Lymph % (Auto) 37.3 [place] % (Auto) 14.0 H Eos % (Auto) 8.2 Baso % (Auto) 1.6 H Immature Gran # (Auto) 0.00 Neut # (Auto) 2.14 Lymph # (Auto) 2.05 [place] # (Auto) 0.77 H Eos # (Auto) 0.45 Baso # (Auto) 0.09 Departure - Departure Time of Disposition Order: 21:16 DIAGNOSIS: Arthritic-like pain Qualifiers: Joint pain location: unspecified Qualified Code(s): M25.50 - Pain in unspecified joint Disposition: HOME 01 Certified Medical Emergency: Emergent Condition: Stable Additional Instructions: Follow up with primary care physician Take medications as directed Return to ED for any concerns or worsening of symptoms ED Follow Up Instructions: You have been treated by a care provider in the Emergency Department. These instructions are being provided to you so you can have an understanding of how to care for yourself upon discharge. Upon discharge from the Emergency Department, you are responsible for making arrangements for follow-up care by a physician of your choice. Take all prescribed medications as directed. Return to the Emergency Department immediately for any new or worsening symptoms. You may call the Physician Referral phone number at [phone] to obtain a list of Physicians who are taking new patients. Prescriptions: Tramadol [Ultram] 50 mg PO Q8HR #12 tablet Attestation - Physician/ CARLOS ALBERTO Attestation Patient care was provided by Advanced Practice Provider:: Yes Advanced Practice Provider:: Babak Hair Advanced Practice Provider documentation review:: The Mid-level provider documentation, treatment plan and medical decision making was reviewed by the physician who agrees with all treatment and medical decision making by the MLP.
[2016-10-11 21:21] LABS: SED RATE 13 mm/hr (0-15)
== END 2016-10-11 21:24 | disposition home or self-care (01) ==
LOC: ED 19:20
DX: M79.641 Pain in right hand (principal); M25.561 Pain in right knee; R53.83 Other fatigue; R53.81 Other malaise; I10 Essential (primary) hypertension; M19.90 Unspecified osteoarthritis, unspecified site; F17.210 Nicotine dependence, cigarettes, uncomplicated; Z79.899 Other long term (current) drug therapy; Z71.6 Tobacco abuse counseling
CPT/HCPCS: 85025; 85651

== ENCOUNTER 2016-10-27 12:49 | Inpatient (IN) ==
[2016-10-27] MEDS ORDERED: NS 1,000 ML ONE (13:15)
[2016-10-27] MEDS ORDERED: ZOFRAN ONE (13:15)
[2016-10-27] MEDS ORDERED: VANCOMYCIN 1 GM/NS 1 GM/250 ML IVPB ONE (14:19)
[2016-10-27] MEDS ORDERED: SOLU-MEDROL ONE (14:19)
[2016-10-27] MEDS ORDERED: ZOSYN 3.375 GM/NS 3.375 GM/50 ML IVPB ONE (14:20)
[2016-10-27] MEDS ORDERED: NS 2,000 ML ONE (14:46)
--- NOTE | 2016-10-27 18:59 | Diag Imaging Result Document ---
PROCEDURE NAME: CHEST-PORTABLE - 10/27/2016 AP PORTABLE CHEST AT 1605 HOURS: FINDINGS: There is a Port-A-Cath on the right with its tip in the superior vena cava. There are multiple old rib fractures on the left. There is no evidence of acute cardiac or pulmonary disease and no previous studies are available for comparison. IMPRESSION: No acute disease.
[2016-10-27 19:08] LABS: URINE CULTURE NEEDED? NO; URINE MICRO REVIEW NEEDED? NO; URINE SOURCE CLEAN CATCH
--- NOTE | 2016-10-27 20:06 | HISTORY AND PHYSICAL ---
PRIMARY CARE PROVIDER: Dr. Thompson. ONCOLOGIST: Dr. Metz. ASSEMBLER INSTALLER GENERAL: Dr. Arauz. CHIEF COMPLAINT: Syncope. HISTORY OF PRESENT ILLNESS: Mr. Shay is an male who has a medical history of seizures over 25 years ago recently diagnosed with esophageal gastric cancer on 07/24/2016, received chemo and radiation with last chemo being about a month ago and is followed by Dr. Metz. Also has a PEG tube but eats regular food. States that he woke up this morning feeling like he needed to use the restroom. He became sweaty, lightheaded and passed out twice. The girlfriend who was with him apparently states that he had jerking seizure-like activity and lost control of bowel and bladder. He remembers waking up, no obvious postictal noted. Denies fever or chills. He has had a cough but it has been nonproductive. Chest x-ray was negative for any acute findings. His white count normal at 7000. He did come in with a low temperature of 94.4, was warmed with IV fluids and a Kali Hugger and now is 97.6. Vital signs remained stable. PAST MEDICAL HISTORY: 1. Seizures greater than 25 years ago. 2. Esophageal gastric cancer with chemo, radiation diagnosed 07/24/2016. 3. Hypertension. 4. GERD. 5. GI bleed history. SURGICAL HISTORY: Carpal tunnel, right Port-A-Cath, PEG tube and questionable gastric resection, he was not sure, the daughter said no but some of the records in the ER shows that he may have had 1. SOCIAL HISTORY: Smokes about a pack every 2 weeks of cigarettes. Quit drinking in June but prior to that drank beer daily the amount is unknown. Smokes marijuana the last being yesterday. He and his girlfriend live in a hotel locally. FAMILY HISTORY: Mother had stomach cancer. ALLERGIES: Unknown. HOME MEDICATIONS: Prochlorperazine 10 mg p.o. every 8 hours as needed for nausea, Zofran as needed for nausea, [place] 10 twice daily, amlodipine 10 mg daily, Prilosec 40 mg daily, paroxetine 20 mg daily. REVIEW OF SYSTEMS: Fourteen point review of systems were complete and all were negative except for those mentioned in above HPI. LABORATORY DATA: White blood cells 7000, hemoglobin 13, hematocrit 39, platelet count 253,000. Sodium 134, potassium 4.3, BUN 31, creatinine is 1.6, glucose 140, magnesium 2.1, TSH 1.56, T4 1.49. Urinalysis negative. Amylase 162, lipase mildly elevated at 73, troponin 0.01, lactate 1.6. IMAGING: Chest x-ray was negative. EKG showed normal sinus rhythm, rate of 65, QTc was 465. No ST elevations or changes. PHYSICAL EXAMINATION: VITAL SIGNS: Temperature on admit was 94.4, is now 97.6, heart rate 62 sinus rhythm, respiratory rate 14, blood pressure 112/83, O2 saturation 98% on room air. GENERAL: Mr. Shay is a male, he is in no acute distress, he is able answer all questions appropriately. HEENT: Atraumatic, normocephalic. Pupils equal, round, reactive to light. Extraocular movements intact. Mucous membranes are dry. NECK: No JVD or carotid bruits. CARDIOVASCULAR: S1, S2. Regular rate and rhythm. No rubs, gallops, murmurs. PULMONARY: Clear to auscultate. Bilateral breath sounds. No accessory muscle use or work of breathing noted. GI: Soft, nontender, nondistended. Positive bowel sounds x4. PEG in place. EXTREMITIES: No edema noted, +2 dorsalis and radial pulses. NEUROLOGIC: A and O x4. Moves all extremities equally. SKIN: Warm, dry, intact. ASSESSMENT AND PLAN: 1. Syncope secondary to questionable seizure or vasovagal syndrome. Apparently girlfriend said he was jerking and had bowel, bladder incontinence. The patient remembers feeling dizzy and passed out twice. Vital signs are stable. Will do orthostatics q.12 hours. If no echocardiogram in last 6 months will repeat an echocardiogram and do IV fluid hydration. 2. Acute kidney injury secondary to dehydration. Could possibly be chronic kidney disease but no past records and the patient denies any history. Will do IV fluid hydration. Did receive 2 L of fluids. 3. Esophageal gastric cancer, percutaneous endoscopic gastrostomy but eats regular food. Dr. Metz following. Chemo last was 1 month ago. 4. Hypothermic mild. Temperature was 94.4 degrees on admit. He was warmed with IV fluids and Kali Hugger and is now resolved. 5. Tobacco abuse. Cessation discussed. 6. Recent history of alcohol abuse currently. He quit in June 2016 when he was diagnosed with cancer. 7. Use of marijuana. 8. Deep venous thrombosis prophylaxis. SCDs. 9. Gastrointestinal prophylaxis. Proton pump inhibitor. Dictated by MALKA Xavier for Mark Brambila MD cc: MALKA Xavier MD Dr. Powell Dr. Shah Dr. Keith
[2016-10-27 20:21] LABS: BILIRUBIN URINE NEGATIVE (NEGATIVE); BLOOD URINE NEGATIVE (NEGATIVE); COLOR YELLOW; GLUCOSE URINE NEGATIVE (NEGATIVE); LEUKOCYTES URINE NEGATIVE (NEGATIVE); NITRITE URINE NEGATIVE (NEGATIVE); PH URINE 5.5; PROTEIN URINE TRACE mg/dL (NEGATIVE); SP GRAVITY URINE 1.016; TURBIDITY URINE CLEAR (CLEAR); UR EPITHELIAL CELLS <10 /HPF (<10); URINE BACTERIA NEGATIVE /HPF; URINE RBC <10 /HPF (<10); URINE WBC <10 /HPF (<10); UROBILINOGEN URINE NORMAL (NORMAL)
[2016-10-27 20:32] LABS: HEMATOCRIT 39.2 % (42.0-52.0); HEMOGLOBIN 13.5 g/dL (14.0-18.0); MCH 28.2 PG (27-31); MCHC 34.4 g/dL (33-37); MPV 11.2 FL (7.4-10.4); RBC 4.78 XMIL (4.7-6.1)
[2016-10-27] MEDS ORDERED: TYLENOL PO PRN (21:08)
[2016-10-27] MEDS ORDERED: ZOFRAN IV PRN (21:10)
--- NOTE | 2016-10-27 21:33 | EKG Report ---
Test Performed on : 10/27/2016 1:41:57 PM Test Reason : CP Blood Pressure : / mmHG Vent. Rate : 065 BPM Atrial Rate : 065 BPM P-R Int : 168 ms QRS Dur : 080 ms QT Int : 448 ms P-R-T Axes : 047 -27 -01 degrees QTc Int : 465 ms Normal sinus rhythm. Voltage criteria for left ventricular hypertrophy Anteroseptal infarct , age undetermined Abnormal ECG When compared with ECG of 27-OCT-2016 12:44, (Unconfirmed) Anteroseptal infarct is now present ST now depressed in Inferior leads Nonspecific T wave abnormality now evident in Lateral leads Unconfirmed Result
[2016-10-27] MEDS ORDERED: NS 1,000 ML IV SCH (22:00)
[2016-10-27 23:46] LABS: AGAP 14; CHLORIDE 99 mmol/L (98-107); POTASSIUM 4.3 mmol/L (3.5-5.1); SODIUM 134 mmol/L (136-145); TCO2 21 mmol/L (25-35)
[2016-10-27 23:47] LABS: ALBUMIN 3.6 g/dL (3.5-5.0); BUN 34 mg/dL (8-22); CALCIUM 8.9 mg/dL (8.8-10.2); COSMO 277; TOTAL BILIRUBIN 0.31 mg/dL (0.20-1.00); TOTAL PROTEIN 7.1 g/dL (6.3-8.3)
[2016-10-27 23:48] LABS: ALKALINE PHOSPHATASE 118 U/L (32-122); AMYLASE 162 U/L (20-200); CK PROFILE 51 U/L (24-204); GOT 34 U/L (10-34); GPT 66 U/L (10-44); LIPASE 73 U/L (13-60)
[2016-10-27 23:50] LABS: FREE T4 1.49 ng/dL (0.93-1.70)
[2016-10-28] MEDS ORDERED: PRILOSEC PO SCH (07:00)
[2016-10-28 07:54] LABS: MANUAL DIFF NEEDED? NO
[2016-10-28 07:59] LABS: BASO% 0.1 % (0.0-0.8); EOS# 0.01 X1000 (0.0-0.7); EOS% 0.1 % (0.0-10.0); HEMATOCRIT 32.5 % (42.0-52.0); HEMOGLOBIN 10.9 g/dL (14.0-18.0); IMM GRAN# 0.03 X1000 (0.0-0.04); IMM GRAN% 0.2 % (0.0-0.5); LYMPH% 13.2 % (20.5-51.1); MCH 27.8 PG (27-31); MCHC 33.5 g/dL (33-37); MCV 82.9 FL (81-99); MONO# 1.59 X1000 (0.11-0.59); MONO% 12.4 % (1.7-9.3); MPV 10.1 FL (7.4-10.4); PLT 239 X1000 (130-400); RBC 3.92 XMIL (4.7-6.1)
[2016-10-28 08:11] LABS: INR 0.96; PTT 24.5 Seconds (22.0-36.0)
[2016-10-28 08:20] LABS: AGAP 11; ALBUMIN 3.2 g/dL (3.5-5.0); ALKALINE PHOSPHATASE 110 U/L (32-122); BUN 22 mg/dL (8-22); CALCIUM 8.6 mg/dL (8.8-10.2); CHLORIDE 103 mmol/L (98-107); COSMO 278; GOT 20 U/L (10-34); GPT 43 U/L (10-44); MAGNESIUM 1.8 mg/dL (1.5-2.7); POTASSIUM 4.7 mmol/L (3.5-5.1); SODIUM 136 mmol/L (136-145); TCO2 22 mmol/L (25-35); TOTAL BILIRUBIN 0.13 mg/dL (0.20-1.00); TOTAL PROTEIN 5.9 g/dL (6.3-8.3)
[2016-10-28 09:39] VITALS: BP 150/88
[2016-10-28] MEDS ORDERED: HEPARIN ONE (12:09)
[2016-10-28] MEDS ORDERED: HEPARIN INJ ONE (12:22)
--- NOTE | 2016-10-28 16:43 | DISCHARGE SUMMARY ---
ADMISSION DATE: 10/27/2016 DISCHARGE DATE: 10/28/2016 DISCHARGE DIAGNOSES: 1. Vasovagal syncope, resolved. 2. Hypertension. 3. Esophageal gastric cancer. 4. Distant history of seizure disorder. 5. Gastroesophageal reflux disease. DISCHARGE MEDICATIONS: 1. Paxil 20 mg p.o. daily. 2. Norvasc 10 mg p.o. daily. 3. Zofran 8 mg q.4 p.r.n. for nausea. 4. Prilosec 40 mg p.o. daily. 5. [place] p.r.n. for pain every 6 hours. 6. Ultram 50 mg p.o. p.r.n. for pain. 7. The patient is no longer taking Lexapro. SIGNIFICANT LABORATORY AND IMAGING: Sodium 136, potassium 4.7, chloride 103, bicarb 22, BUN 22, creatinine 1, glucose 139. Chemistry: White count of 12.85, hemoglobin 10.9, hematocrit of 32.5, platelets of 239,000. Chest x-ray negative for any acute process. HOSPITAL COURSE: The patient is a 56-year-old with gastric cancer admitted to the hospital after he was trying to having a bowel movement and passed out on the commode. The patient was diaphoretic, and blood pressure was low when EMS arrived. By the time the patient got to the emergency room, his vital signs were normal, and the patient was awake, alert, and oriented. Troponin was negative. All of the lab work was within normal limits. Culture was also negative so far. He is doing well. No recurrent syncope. We monitored him overnight, and no abnormal rhythm. The patient is doing well and eating well. Actually, he had his 2nd breakfast and wants to go home. PLAN: We will discharge the patient home today and resume his home medications. PHYSICAL EXAMINATION: Vital Signs: At discharge, blood pressure 150/88, pulse of 96, respiration 18, temperature 99.1 degrees, saturation 100% on room air. General Appearance: Well-developed, well-nourished black male in no acute distress. HEENT: Anicteric. Clear conjunctivae. Neck: Supple. No JVD. No bruit. Cardiovascular: S1, S2. Normal rate and rhythm. No murmur, rubs, or gallops. Pulmonary: Clear to auscultation bilaterally. GI: Soft, nontender, nondistended. Normoactive bowel sounds. Musculoskeletal: No clubbing, cyanosis, or edema. PLAN: We will discharge the patient home to follow up with his PCP, Dr. Chao Thompson in 1 to 2 weeks and follow up with Dr. Apryl Metz in 1 to 2 weeks. TIME: Total time discharging this patient was 35 minutes. cc: Chao Metz MD
== END 2016-10-28 12:50 | disposition home or self-care (01) ==
LOC: ED 12:49 → 3N 18:56 → SUATTDRO 19:00 → 3N 19:00
PROVIDERS: ATTEND Internal Medicine

== ENCOUNTER 2016-12-22 15:10 | Inpatient (IN) ==
[2016-12-22] MEDS ORDERED: NS 2,000 ML ONE (15:15)
[2016-12-22] MEDS ORDERED: ASPIRIN PO STA (15:23)
[2016-12-22] MEDS ORDERED: NS 1,000 ML IV ONE (15:25)
--- NOTE | 2016-12-22 18:22 | HISTORY AND PHYSICAL ---
A 57-year-old who presented to the emergency room. Apparently, he was at the [employer] parking lot. He said that he just passed out. He does know why. He did admit to smoking a joint. Said it was not synthetic, it was just regular stuff and he said he had not drank in a while. Denies any other substance. He denies fever, chills or chest pain or palpitation or anything else. He denies any head pain. His urine drug screen was positive for amphetamines and cannabinoids. PAST MEDICAL HISTORY: He says he has esophageal cancer and it was discovered in June. The best he could tell is that Dr. Metz was following. They were going to put a feeding tube and I suppose he had a feeding tube. Has a midline scar there. He has had a previous lumbar and thoracic CT back in December 2015 which were unremarkable. He also had hip pelvic x-ray and a foot x- ray, which showed no bony abnormality. He does complain that the back of his head is hurting. Thinks he fell back and hit his head. I do not see any soft tissue injury. Had cervical CT done also in December 2015 which is negative. He had a nuclear bone scan done in August 2015 and possible chronic changes around the right bipolar hip prosthesis so apparently he has had a right bipolar hip replacement. ALLERGIES: He denies any allergies. FAMILY HISTORY: Did not report any significant family history. REVIEW OF SYSTEMS: Did not complain about change in vision or hearing acuity, respiratory problems, cardiovascular issues.GI/: No issues there. EXAM: In the emergency room he is awake, alert and oriented. Appears to be oriented x3. Pulse is 80, respirations 18, blood pressure 116/82.HEENT: Pupils are equal, round. Lungs: Clear anterolateral. Breathing comfortably. Cardiovascular: Regular rhythm and rate without murmur or S3. Abdomen: Soft. Skin: Warm and dry. Weight 150 pounds. No pedal edema. LAB: White count 6730, hematocrit 35, platelet count 295,000. Sodium 137, potassium 3.8, chloride 97, bicarb 21, BUN 39, creatinine 2.3. Blood sugar was 118. Magnesium 1.9. Albumin 3.4. Pro time 9.9. PTT was 20. Urinalysis unremarkable. Chest x-ray was no acute disease. CT of his head moderately advanced white matter changes most likely chronic microvascular disease. ASSESSMENT AND PLAN: 1. Apparently had a syncopal episode. We do not have a lot of details and there was some activity suggestive of tonoclonic seizure. He is awake and alert at the present time. I do not see much evidence of postictal. We will admit for observation. Put him on a monitor and see how he does. 2. Acute kidney injury. His creatinine is 2.3. Baseline for him is 1.1 back in September 2015 so we will hydrate him some with normal saline. We will run it in at 100 mL an hour and see what his creatinine is in the morning. We will check his T4 and TSH, B12 and folate. 3. Apparently history of esophageal cancer. I do not have much in the way of records. I am not sure what was done with treatment. I am not sure he remembers. He had an ultrasound in August 2015 and they did a right hip aspiration so it was ultrasound of the hip with aspiration. See if we can confirm this past medical history. We will see how he does with p.o. intake. Nutrition looks pretty good. 4. Lastly urine drug screen was positive for cannabinoids and he denies synthetic. There could be other substances that we do not know about. He has also got amphetamines although not sure what medicine he was taking. Looking at his medicine list he is taking Tylenol with codeine and Norvasc 10 mg a day. cc: Reginaldo Solomon MD
[2016-12-22] MEDS ORDERED: NS 1,000 ML IV SCH (18:35)
[2016-12-22] MEDS ORDERED: TYLENOL PO PRN (18:35)
[2016-12-22] MEDS ORDERED: ZOFRAN IV PRN (18:35)
[2016-12-22] MEDS ORDERED: ATIVAN IV PRN (18:35)
[2016-12-22] MEDS ORDERED: TYLENOL WITH CODEINE #3 PO PRN (18:35)
[2016-12-23 04:38] VITALS: BP 120/66
[2016-12-23] MEDS ORDERED: PRILOSEC PO SCH (07:00)
--- NOTE | 2016-12-25 16:36 | EKG Report ---
Test Performed on : 12/22/2016 3:10:05 PM Test Reason : ED. Not ordered in [place] Blood Pressure : / mmHG Vent. Rate : 102 BPM Atrial Rate : 102 BPM P-R Int : 142 ms QRS Dur : 072 ms QT Int : 364 ms P-R-T Axes : 000 -26 150 degrees QTc Int : 474 ms Sinus tachycardia. Anterior infarct , age undetermined T wave abnormality, consider lateral ischemia Abnormal ECG When compared with ECG of 25-MAR-2012 14:19, Previous ECG has undetermined rhythm, needs review Unconfirmed Result
== END 2016-12-23 05:54 | disposition home or self-care (01) ==
LOC: EDBD → ED 15:10 → EDUNIT# 18:06 → 3S 18:06
PROVIDERS: ATTEND Emergency Medicine

== ENCOUNTER 2016-12-22 15:10 | Inpatient (IN) ==
[2016-12-23] MEDS ORDERED: TYLENOL WITH CODEINE #3 PO PRN (01:00)
[2016-12-23] MEDS ORDERED: NS 1,000 ML IV SCH (06:43)
[2016-12-23] MEDS ORDERED: ATIVAN IV PRN (06:43)
[2016-12-23] MEDS ORDERED: TYLENOL PO PRN (06:43)
[2016-12-23 06:45] LABS: MANUAL DIFF NEEDED? NO
[2016-12-23 06:53] LABS: BASO% 0.7 % (0.0-0.8); EOS# 0.22 X1000 (0.0-0.7); EOS% 3.8 % (0.0-10.0); HEMATOCRIT 32.1 % (42.0-52.0); HEMOGLOBIN 10.9 g/dL (14.0-18.0); LYMPH# 1.88 X1000 (1.2-3.4); LYMPH% 32.8 % (20.5-51.1); MCH 30.9 PG (27-31); MCV 90.9 FL (81-99); MONO# 0.55 X1000 (0.11-0.59); MONO% 9.6 % (1.7-9.3); MPV 11.1 FL (7.4-10.4); NEUT% 53.1 % (42.2-75.2); PLT 250 X1000 (130-400); RBC 3.53 XMIL (4.7-6.1)
[2016-12-23 06:57] LABS: AGAP 13; ALBUMIN 2.9 g/dL (3.5-5.0); ALKALINE PHOSPHATASE 80 U/L (32-122); BUN 33 mg/dL (8-22); CALCIUM 8.8 mg/dL (8.8-10.2); CHLORIDE 99 mmol/L (98-107); COSMO 276; GOT 25 U/L (10-34); GPT 28 U/L (10-44); MAGNESIUM 1.7 mg/dL (1.5-2.7); POTASSIUM 4.4 mmol/L (3.5-5.1); SODIUM 134 mmol/L (136-145); TCO2 22 mmol/L (25-35); TOTAL BILIRUBIN 0.24 mg/dL (0.20-1.00); TOTAL PROTEIN 5.9 g/dL (6.3-8.3)
[2016-12-23] MEDS ORDERED: PNEUMOVAX 23 IM ONE (07:00)
[2016-12-23] MEDS ORDERED: PRILOSEC PO SCH (07:00)
[2016-12-23 07:02] LABS: INR 0.96; PTT 23.9 Seconds (22.0-36.0)
[2016-12-23 07:16] LABS: FREE T4 1.19 ng/dL (0.93-1.70)
[2016-12-23] MEDS: ZOFRAN IV PRN ×2 (08:17→12:22)
--- NOTE | 2016-12-23 09:20 | PROGRESS NOTE ---
DATE: 12/23/2016 SUBJECTIVE: Mr. Shay was eating breakfast. He says that he is sore. He is sore in his neck and back of his head. He has remained afebrile. He is alert and oriented x3. His father was at the bedside. OBJECTIVE: Vital Signs: Temperature 98.2 degrees, pulse 86, respirations 18, blood pressure 142/89. Lungs: Are clear in all lung [place]. Cardiovascular Examination: Regular rhythm and rate without murmur or S3. Abdomen: Soft. Skin: Is warm and dry. Weight: 180 pounds. Is and Os: Urine output 600 mL. Lab: White count 5740, hematocrit 32, platelet count 250,000. Sodium 134, potassium 4.4, chloride 99, bicarb 22, BUN 33, creatinine 1.3. Liver functions unremarkable. Albumin 2.9. Folate was 7.7 this morning. ASSESSMENT AND PLAN: Questionable syncopal episode, doing well. I do not see any sign of new neurologic or cardiac pathology. He is eating well. Plan to probably let him go home this afternoon if all goes well and he would like to do that. We will see how he does with breakfast and lunch. I will watch him on the hospital monitor. He has had some soreness in his neck. Continue fluids at 100 mL an hour. He does have a history of esophageal cancer. cc: Reginaldo Solomon MD
[2016-12-23 10:20] VITALS: BP 135/86
--- NOTE | 2016-12-23 20:53 | DISCHARGE SUMMARY ---
ADMISSION DATE: 12/22/2016 DISCHARGE DATE: 12/23/2016 HOSPITAL COURSE: Presented with history apparently he was found at the [employer] parking lot and was unresponsive and had passed out. He was awake when he got to the emergency room. Urine drug screen showed positive for cannabinoids and amphetamines. He admitted to smoking some marijuana. Hemodynamically he appeared stable, respiratory status unremarkable, no sign of underlying infection. No focal neurologic deficits and he was given some fluid because he did have some acute renal injury and his creatinine is 1.3 but felt like he could go home on the afternoon of 12/23/2016. He is to follow up with his primary care and Dr. Metz. cc: Reginaldo Solomon MD
[2016-12-24 10:02] LABS: MANUAL DIFF NEEDED? NO; URINE MICRO REVIEW NEEDED? NO; URINE SOURCE VOIDED
[2016-12-24 10:04] LABS: HEMATOCRIT 35.9 % (42.0-52.0); HEMOGLOBIN 12.5 g/dL (14.0-18.0); MCH 31.6 PG (27-31); MCV 90.9 FL (81-99); RBC 3.95 XMIL (4.7-6.1)
[2016-12-24 10:05] LABS: BASO% 0.9 % (0.0-0.8); EOS# 0.17 X1000 (0.0-0.7); EOS% 2.5 % (0.0-10.0); LYMPH# 3.25 X1000 (1.2-3.4); LYMPH% 48.3 % (20.5-51.1); MCHC 34.8 g/dL (33-37); MONO# 0.64 X1000 (0.11-0.59); MONO% 9.5 % (1.7-9.3); MPV 10.5 FL (7.4-10.4); NEUT% 38.8 % (42.2-75.2); PLT 295 X1000 (130-400)
[2016-12-24 10:07] LABS: POTASSIUM 3.8 mmol/L (3.5-5.1)
[2016-12-24 10:08] LABS: ALBUMIN 3.4 g/dL (3.5-5.0); CALCIUM 9.5 mg/dL (8.8-10.2); MAGNESIUM 1.9 mg/dL (1.5-2.7); TOTAL BILIRUBIN 0.31 mg/dL (0.20-1.00); TOTAL PROTEIN 6.9 g/dL (6.3-8.3)
[2016-12-24 10:10] LABS: INR 0.95; PROTIME 9.9 Seconds (9.2-11.7); PTT 20.5 Seconds (22.0-36.0)
[2016-12-24 10:12] LABS: UR CREAT RANDOM 266.1 mg/dL (14-26)
[2016-12-24 10:13] LABS: UR AMPHETAMINES QUAL PRESUMPTIVE POSITIVE (NONE DETECT); UR BARBITUATES QUAL NONE DETECTED (NONE DETECT); UR BENZODIAZEPIN QUAL NONE DETECTED (NONE DETECT); UR CANNABINOIDS QUAL PRESUMPTIVE POSITIVE (NONE DETECT); UR COCAINE QUAL NONE DETECTED (NONE DETECT); UR METHADONE QUAL NONE DETECTED (NONE DETECT); UR OPIATES QUAL NONE DETECTED (NONE DETECT); UR OXYCODONE QUAL NONE DETECTED (NONE DETECT); UR PCP QUAL NONE DETECTED (NONE DETECT)
[2016-12-24 10:14] LABS: BILIRUBIN URINE NEGATIVE (NEGATIVE); BLOOD URINE NEGATIVE (NEGATIVE); COLOR YELLOW; GLUCOSE URINE NEGATIVE (NEGATIVE); LEUKOCYTES URINE NEGATIVE (NEGATIVE); NITRITE URINE NEGATIVE (NEGATIVE); PH URINE 5.5; PROTEIN URINE 30 mg/dL (NEGATIVE); SP GRAVITY URINE 1.025; UR EPITHELIAL CELLS <10 /HPF (<10); URINE BACTERIA NEGATIVE /HPF; URINE RBC <10 /HPF (<10); URINE WBC <10 /HPF (<10); UROBILINOGEN URINE NORMAL (NORMAL)
[2016-12-24 10:15] LABS: TURBIDITY URINE HAZY (CLEAR)
--- NOTE | 2016-12-25 04:54 | HISTORY AND PHYSICAL ---
HISTORY OF PRESENT ILLNESS: He presented to the emergency room. Apparently was at nondenominational parking lot. He said he just passed out. He does not know why. He did admit to smoking a joint. Said it was not synthetic marijuana, just regular stuff. He said that he has not drank in a while. Denied any other substance. He denied fever, chills, chest pain, or palpitations. He was oriented to person. Knew he was at the hospital. Did not really know the time or the date. Urine drug screen was positive for amphetamines and cannabinoids. Not sure exactly if he truly passed out. The report was that he had passed out. He reports that he has had esophageal cancer. It was discovered in June. He said that he thinks Dr. Metz was following him. He has a midline scar where he thinks they tried to put a feeding tube at some point. He was admitted here back the 27 of October. He had seizures apparently over 25 years ago. He was diagnosed with esophageal cancer on 07/24/2016. Received chemotherapy and radiation, last chemotherapy being about 3 months ago[address] by Dr. Metz. Had a PEG tube for a while but was eating regularly and they removed the PEG tube. Other past medical history of gastroesophageal reflux, GI bleed history, hypertension. PAST MEDICAL HISTORY: 1. Seizures which he had greater than 25 years ago. 2. 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 Had a PEG tube for a time. This was discontinued. 3. Hypertension. 4. Gastroesophageal reflux disease. 5. GI bleed. SURGICAL HISTORY: Carpal tunnel, right Port-A-Cath, had a PEG tube and apparently had a gastric reaction. This has been removed. SOCIAL HISTORY: Smokes a pack every 2 weeks of cigarettes. He reports he quit drinking around June of this last year. Does not drink much. Smokes marijuana. FAMILY HISTORY: Mother had stomach cancer. ALLERGIES: None known. MEDICATIONS: Reviewed his medications. He was on prochlorperazine 10 mg q.8 hours p.r.n. nausea, Zofran as needed for nausea. He took Datil for a while for pain. I do not believe that he is taking that now. Amlodipine 10 mg a day, Prilosec 40 mg a day, paroxetine 20 mg a day. REVIEW OF SYSTEMS: Constitutional: He denies any weight gain or loss. He states he is eating. Respiratory: No increased work of breathing or dyspnea. Cardiovascular: No chest pain or tachy palpitations. GI: Unremarkable. : Unremarkable. Musculoskeletal/Neurologic: No significant complaints. Endocrinologic/Hematologic: No significant recent history. PHYSICAL EXAMINATION: VITAL SIGNS: On presentation, temperature 98.2 degrees, pulse 86, respirations 18, blood pressure 142/89. HEENT: Pupils are equal, round. LUNGS: Clear in all lung eldridge. CARDIOVASCULAR: Regular rhythm and rate without murmur or S3. ABDOMEN: Soft. SKIN: Warm and dry. HEIGHT AND WEIGHT: Weight 180 pounds, height 5 feet 11 inches. INTAKES AND OUTPUTS: Urine output not recorded yet at this time. NECK: No neck distention. CVP less than 6 cm. DIAGNOSTIC DATA: White count 5740, hematocrit 32, platelet count 250,000. Sodium 134, potassium 4.4, chloride 99, bicarb 22, BUN 33, creatinine 1.3. Liver functions unremarkable. Albumin was 2.9. T4 was 1.19, TSH 0.58. B12 was 748, folate was 7.7 which is a little low. Prothrombin time 10, PTT 23. AMBULATORY MEDICATIONS: He is on Norvasc 10 mg a day, hydrocodone 10/325 one q.6 hours p.r.n., Prilosec 40 mg a day, Paxil 20 mg a day, Ultram 50 mg p.o. q.8 hours p.r.n. ASSESSMENT AND PLAN: 1. Apparently, questionable syncopal episode. His urine drug screen was positive for cannabinoids. He denies any synthetic marijuana. He also was positive for amphetamines and so not sure if there was some included. Neurologically, he appears intact, although lethargic and confused. Cannot give us much more history. 2. Distant history of seizures in the past. No recorded recent event. No history of tonic- clonic seizures recently or today. 3. History of esophageal cancer, followed by Dr. Metz and apparently has undergone treatment. Had a PEG tube for a while. 4. Acute kidney injury. Serum creatinine is 2.3. We will give him some fluid and watch his response. cc: Reginaldo Solomon MD
--- NOTE | 2016-12-25 15:55 | Diag Imaging Result Doc PS360 ---
EXAM: CHEST-1 VIEW HISTORY: UNRESPONSIVE TECHNIQUE: AP supine COMMENT: There is a port over the right shoulder with its tip in the superior vena cava. There is no evidence of acute cardiac or pulmonary disease. There are apparent old rib fractures on the left. Compared to 12/01/2016 there has been no significant change in the appearance of the chest. IMPRESSION: Stable chest. Electronically signed by Misael Gonzalez 12/25/2016 3:53 PM
--- NOTE | 2016-12-25 16:00 | Diag Imaging Result Doc PS360 ---
EXAM: HEAD W/O CONTRAST INDICATION: CANCER, MS CHANGE, SEIZURE COMPARISON: 11/16/2013 FINDINGS: There is patchy low attenuation in the periventricular and subcortical white matter suggesting moderate microangiopathy, stable. There is no discrete intracranial mass, mass effect, or intracranial hemorrhage. There is no evidence of acute infarct given the limited sensitivity of CT versus MRI. The surrounding soft tissues and bony structures are essentially unremarkable. IMPRESSION: Stable chronic changes as described. No definite acute intracranial pathology. Electronically signed by Robbie Troy 12/25/2016 3:58 PM
== END 2016-12-23 14:25 | disposition home or self-care (01) ==
LOC: 3S 12-23 05:42
PROVIDERS: ATTEND Emergency Medicine

== ENCOUNTER 2017-03-29 11:43 | Inpatient (IN) ==
[2017-03-29] MEDS ORDERED: NS 1,000 ML IV ONE (12:11)
[2017-03-29 12:39] LABS: MANUAL DIFF NEEDED? NO
[2017-03-29 12:55] LABS: INR 0.97; PROTIME 10.2 Seconds (9.2-11.7); PTT 30.1 Seconds (22.0-36.0)
[2017-03-29 13:08] LABS: BASO% 0.3 % (0.0-0.8); EOS# 0.62 X1000 (0.0-0.7); EOS% 4.7 % (0.0-10.0); HEMATOCRIT 18.8 % (42.0-52.0); IMM GRAN# 0.06 X1000 (0.0-0.04); IMM GRAN% 0.5 % (0.0-0.5); LYMPH# 1.95 X1000 (1.2-3.4); LYMPH% 14.9 % (20.5-51.1); MCH 29.1 PG (27-31); MCHC 31.9 g/dL (33-37); MCV 91.3 FL (81-99); MONO# 1.46 X1000 (0.11-0.59); MONO% 11.1 % (1.7-9.3); NEUT% 68.5 % (42.2-75.2); PLT 333 X1000 (130-400); RBC 2.06 XMIL (4.7-6.1)
[2017-03-29 13:21] LABS: AGAP 11; ALBUMIN 2.4 g/dL (3.5-5.0); ALKALINE PHOSPHATASE 70 U/L (32-122); BUN 21 mg/dL (8-22); CALCIUM 8.4 mg/dL (8.8-10.2); CHLORIDE 98 mmol/L (98-107); COSMO 273; GOT 27 U/L (10-34); GPT 23 U/L (10-44); POTASSIUM 3.6 mmol/L (3.5-5.1); SODIUM 134 mmol/L (136-145); TCO2 25 mmol/L (25-35); TOTAL BILIRUBIN 0.12 mg/dL (0.20-1.00); TOTAL PROTEIN 5.2 g/dL (6.3-8.3)
[2017-03-29] MEDS ORDERED: SODIUM CHLORIDE 0.9% INJ ONE ×2 (13:41→16:35)
[2017-03-29] MEDS ORDERED: PROTONIX IV ONE (13:41)
[2017-03-29] MEDS ORDERED: CARAFATE LIQUID PO ONE (13:42)
[2017-03-29] MEDS ORDERED: SOLU-MEDROL ONE (16:23)
[2017-03-29] MEDS ORDERED: BENADRYL ONE (16:23)
[2017-03-29 16:28] LABS: IRON SATURATION 7 %; TIBC 236 ug/dL; TOTAL IRON 16 ug/dL (53-167); UNBOUND IRON 220 ug/dL (112-346)
[2017-03-29] MEDS ORDERED: BENADRYL IV ONE ×2 (16:32→21:26)
[2017-03-29] MEDS ORDERED: SOLU-MEDROL 0 MG in NS 100 ML IV ONE (16:33)
[2017-03-29] MEDS ORDERED: PEPCID IV ONE (16:35)
[2017-03-29 16:45] LABS: FERRITIN 57 ng/mL (30-400)
[2017-03-29] MEDS ORDERED: SOLU-MEDROL IV ONE (16:50)
[2017-03-29] MEDS: CARAFATE LIQUID PO SCH ×2 (16:53→21:05)
[2017-03-29] MEDS: PROTONIX 80 MG in NS 80 ML IV SCH (20:00)
[2017-03-29] MEDS ORDERED: ZOFRAN IV PRN (21:07)
[2017-03-29] MEDS ORDERED: TYLENOL PO PRN (21:26)
[2017-03-30 04:58] LABS: BASO% 0.1 % (0.0-0.8); HEMATOCRIT 25.4 % (42.0-52.0); HEMOGLOBIN 8.3 g/dL (14.0-18.0); IMM GRAN# 0.04 X1000 (0.0-0.04); IMM GRAN% 0.3 % (0.0-0.5); LYMPH# 1.21 X1000 (1.2-3.4); LYMPH% 8.5 % (20.5-51.1); MANUAL DIFF NEEDED? YES; MCHC 32.7 g/dL (33-37); MCV 85.8 FL (81-99); MONO# 0.84 X1000 (0.11-0.59); MONO% 5.9 % (1.7-9.3); MPV 9.7 FL (7.4-10.4); NEUT% 85.2 % (42.2-75.2); PLT 254 X1000 (130-400); RBC 2.96 XMIL (4.7-6.1)
[2017-03-30 05:08] LABS: INR 0.96; PTT 26.5 Seconds (22.0-36.0)
[2017-03-30 05:13] LABS: BANDS 6 % (0-1); EOS 2 % (1-10); HYPOCHROM 1+; LYMPHS 8 % (21-51); MONO 4 % (1-9); POLYCHROM OCCASIONAL
[2017-03-30 05:29] LABS: AGAP 11; ALBUMIN 2.4 g/dL (3.5-5.0); ALKALINE PHOSPHATASE 73 U/L (32-122); BUN 19 mg/dL (8-22); CALCIUM 8.1 mg/dL (8.8-10.2); CHLORIDE 102 mmol/L (98-107); COSMO 277; GOT 24 U/L (10-34); GPT 22 U/L (10-44); MAGNESIUM 1.8 mg/dL (1.5-2.7); POTASSIUM 4.5 mmol/L (3.5-5.1); SODIUM 137 mmol/L (136-145); TCO2 24 mmol/L (25-35); TOTAL BILIRUBIN 0.25 mg/dL (0.20-1.00); TOTAL PROTEIN 5.4 g/dL (6.3-8.3)
[2017-03-30] MEDS: NS 1,000 ML IV SCH ×3 (05:40→22:54)
[2017-03-30] MEDS: CARAFATE LIQUID PO SCH ×4 (05:45→20:58)
[2017-03-30] MEDS: PROTONIX 80 MG in NS 80 ML IV SCH ×2 (06:00→16:49)
[2017-03-30] MEDS ORDERED: VENOFER IV SCH (12:30)
[2017-03-30] MEDS: VENOFER 300 MG in NS 250 ML IV SCH (14:33)
[2017-03-30] MEDS ORDERED: CUBICIN 500 MG in NS 100 ML IV SCH (16:30)
[2017-03-30] MEDS ORDERED: VANCOMYCIN IV PER PHARMACY MISC SCH (16:30)
[2017-03-30] MEDS ORDERED: VANCOMYCIN 2,500 MG in NS 500 ML IV ONE (18:00)
[2017-03-30] MEDS: DULCOLAX PR SCH (20:59)
[2017-03-31] MEDS: DULCOLAX PR SCH ×2 (00:07→22:01)
[2017-03-31] MEDS: PROTONIX 80 MG in NS 80 ML IV SCH ×3 (02:34→22:02)
[2017-03-31] MEDS: CARAFATE LIQUID PO SCH ×4 (02:34→22:01)
[2017-03-31 06:29] LABS: MANUAL DIFF NEEDED? NO
[2017-03-31 06:36] LABS: BASO% 0.3 % (0.0-0.8); EOS# 0.68 X1000 (0.0-0.7); EOS% 4.4 % (0.0-10.0); HEMATOCRIT 25.7 % (42.0-52.0); HEMOGLOBIN 8.4 g/dL (14.0-18.0); IMM GRAN# 0.06 X1000 (0.0-0.04); IMM GRAN% 0.4 % (0.0-0.5); LYMPH% 17.5 % (20.5-51.1); MCH 27.9 PG (27-31); MCHC 32.7 g/dL (33-37); MCV 85.4 FL (81-99); MONO# 1.79 X1000 (0.11-0.59); MONO% 11.6 % (1.7-9.3); MPV 9.7 FL (7.4-10.4); NEUT% 65.8 % (42.2-75.2); PLT 289 X1000 (130-400); RBC 3.01 XMIL (4.7-6.1)
[2017-03-31 06:49] LABS: AGAP 8; BUN 11 mg/dL (8-22); CALCIUM 8.2 mg/dL (8.8-10.2); CHLORIDE 104 mmol/L (98-107); COSMO 272; POTASSIUM 3.6 mmol/L (3.5-5.1); SODIUM 137 mmol/L (136-145); TCO2 25 mmol/L (25-35)
[2017-03-31 08:13] LABS: URINE CULTURE NEEDED? NO; URINE MICRO REVIEW NEEDED? NO; URINE SOURCE CLEAN CATCH
[2017-03-31 08:17] LABS: BILIRUBIN URINE NEGATIVE (NEGATIVE); BLOOD URINE NEGATIVE (NEGATIVE); COLOR STRAW; GLUCOSE URINE NEGATIVE (NEGATIVE); LEUKOCYTES URINE NEGATIVE (NEGATIVE); NITRITE URINE NEGATIVE (NEGATIVE); PROTEIN URINE NEGATIVE (NEGATIVE); SP GRAVITY URINE 1.003; TURBIDITY URINE CLEAR (CLEAR); UROBILINOGEN URINE NORMAL (NORMAL)
[2017-03-31 08:18] LABS: UR EPITHELIAL CELLS <10 /HPF (<10); URINE BACTERIA NEGATIVE /HPF; URINE RBC <10 /HPF (<10); URINE WBC <10 /HPF (<10)
[2017-03-31] MEDS: NS 1,000 ML IV SCH ×2 (10:04→13:19)
[2017-03-31] MEDS: MIRALAX PO SCH (10:05)
[2017-03-31] MEDS ORDERED: VANCOMYCIN 1,800 MG in NS 250 ML IV SCH (12:00)
[2017-03-31] MEDS: VENOFER 300 MG in NS 250 ML IV SCH (13:19)
[2017-03-31 16:28] LABS: AGAP 9; BUN 11 mg/dL (8-22); CALCIUM 8.1 mg/dL (8.8-10.2); CHLORIDE 99 mmol/L (98-107); COSMO 265; POTASSIUM 3.7 mmol/L (3.5-5.1); SODIUM 132 mmol/L (136-145); TCO2 24 mmol/L (25-35)
[2017-03-31] MEDS: ROCEPHIN 2 GM in NS 50 ML IV SCH (17:38)
[2017-04-01] MEDS: CARAFATE LIQUID PO SCH ×4 (02:24→22:12)
[2017-04-01] MEDS: NS 1,000 ML IV SCH ×2 (02:24→17:03)
[2017-04-01 06:35] LABS: MANUAL DIFF NEEDED? NO
[2017-04-01 06:41] LABS: BASO% 0.3 % (0.0-0.8); EOS# 0.85 X1000 (0.0-0.7); EOS% 6.8 % (0.0-10.0); HEMATOCRIT 28.4 % (42.0-52.0); HEMOGLOBIN 9.4 g/dL (14.0-18.0); IMM GRAN# 0.06 X1000 (0.0-0.04); IMM GRAN% 0.5 % (0.0-0.5); LYMPH# 2.41 X1000 (1.2-3.4); LYMPH% 19.2 % (20.5-51.1); MCH 28.2 PG (27-31); MCHC 33.1 g/dL (33-37); MCV 85.3 FL (81-99); MONO# 1.68 X1000 (0.11-0.59); MONO% 13.4 % (1.7-9.3); MPV 9.8 FL (7.4-10.4); NEUT% 59.8 % (42.2-75.2); PLT 312 X1000 (130-400); RBC 3.33 XMIL (4.7-6.1)
[2017-04-01 06:56] LABS: MAGNESIUM 1.6 mg/dL (1.5-2.7)
[2017-04-01 06:57] LABS: AGAP 11; BUN 9 mg/dL (8-22); CALCIUM 8.5 mg/dL (8.8-10.2); CHLORIDE 98 mmol/L (98-107); COSMO 270; POTASSIUM 3.9 mmol/L (3.5-5.1); SODIUM 136 mmol/L (136-145); TCO2 27 mmol/L (25-35)
[2017-04-01] MEDS: PROTONIX 80 MG in NS 80 ML IV SCH (08:59)
[2017-04-01] MEDS: MIRALAX PO SCH (08:59)
[2017-04-01] MEDS ORDERED: VANCOMYCIN 2,400 MG in NS 500 ML IV SCH (12:00)
[2017-04-01] MEDS: PROTONIX IV SCH (14:20)
[2017-04-01] MEDS: ROCEPHIN 2 GM in NS 50 ML IV SCH (17:04)
[2017-04-01] MEDS: DULCOLAX PR SCH (22:12)
[2017-04-02] MEDS: PROTONIX IV SCH ×2 (02:06→13:36)
[2017-04-02] MEDS: CARAFATE LIQUID PO SCH ×4 (02:07→21:53)
[2017-04-02 06:34] LABS: MANUAL DIFF NEEDED? NO
[2017-04-02 06:38] LABS: BASO% 0.4 % (0.0-0.8); EOS# 0.91 X1000 (0.0-0.7); EOS% 7.3 % (0.0-10.0); HEMATOCRIT 30.4 % (42.0-52.0); HEMOGLOBIN 10.1 g/dL (14.0-18.0); IMM GRAN# 0.07 X1000 (0.0-0.04); IMM GRAN% 0.6 % (0.0-0.5); LYMPH# 2.28 X1000 (1.2-3.4); LYMPH% 18.3 % (20.5-51.1); MCH 28.1 PG (27-31); MCHC 33.2 g/dL (33-37); MCV 84.4 FL (81-99); MONO# 1.84 X1000 (0.11-0.59); MONO% 14.7 % (1.7-9.3); MPV 9.5 FL (7.4-10.4); NEUT% 58.7 % (42.2-75.2); PLT 333 X1000 (130-400)
[2017-04-02 06:54] LABS: AGAP 12; ALBUMIN 2.7 g/dL (3.5-5.0); ALKALINE PHOSPHATASE 88 U/L (32-122); BUN 9 mg/dL (8-22); CALCIUM 8.6 mg/dL (8.8-10.2); CHLORIDE 100 mmol/L (98-107); COSMO 270; GOT 25 U/L (10-34); GPT 24 U/L (10-44); POTASSIUM 4.1 mmol/L (3.5-5.1); SODIUM 136 mmol/L (136-145); TCO2 24 mmol/L (25-35); TOTAL BILIRUBIN 0.22 mg/dL (0.20-1.00); TOTAL PROTEIN 6.2 g/dL (6.3-8.3)
[2017-04-02] MEDS ORDERED: DIPRIVAN 1% ONE ×2 (07:16→07:17)
[2017-04-02] MEDS ORDERED: XYLOCAINE-MPF 2% ONE (07:16)
[2017-04-02] MEDS ORDERED: ROBINUL ONE (08:06)
[2017-04-02] MEDS: MIRALAX PO SCH (08:45)
[2017-04-02] MEDS: NS 1,000 ML IV SCH (09:04)
[2017-04-02] MEDS ORDERED: SODIUM CHLORIDE 0.9% 10 ML ONE (09:43)
[2017-04-02] MEDS: VANCOMYCIN 2,500 MG in NS 500 ML IV SCH (13:35)
[2017-04-02] MEDS ORDERED: ATIVAN PO PRN (20:42)
[2017-04-02] MEDS: COREG PO SCH (21:53)
[2017-04-02] MEDS: DULCOLAX PR SCH (21:53)
[2017-04-03] MEDS: PROTONIX IV SCH ×2 (04:57→14:47)
[2017-04-03] MEDS: CARAFATE LIQUID PO SCH ×4 (04:58→20:50)
[2017-04-03 06:58] LABS: HEMATOCRIT 26.9 % (42.0-52.0); HEMOGLOBIN 8.9 g/dL (14.0-18.0); MCH 28.2 PG (27-31); MCHC 33.1 g/dL (33-37); MCV 85.1 FL (81-99); MPV 9.8 FL (7.4-10.4); RBC 3.16 XMIL (4.7-6.1)
[2017-04-03 07:24] LABS: AGAP 10; BUN 14 mg/dL (8-22); CALCIUM 8.1 mg/dL (8.8-10.2); CHLORIDE 102 mmol/L (98-107); COSMO 272; POTASSIUM 4.2 mmol/L (3.5-5.1); SODIUM 136 mmol/L (136-145); TCO2 24 mmol/L (25-35)
[2017-04-03] MEDS: COREG PO SCH ×2 (10:32→20:50)
[2017-04-03] MEDS: MIRALAX PO SCH (10:32)
[2017-04-03] MEDS: VANCOMYCIN 2,500 MG in NS 500 ML IV SCH (12:25)
[2017-04-03] MEDS: REGLAN PO SCH ×3 (12:25→20:50)
[2017-04-03] MEDS: SODIUM CHLORIDE 0.9% 10 ML ONE (14:47)
[2017-04-03] MEDS: DULCOLAX PR SCH ×2 (20:51→20:53)
[2017-04-04] MEDS: SODIUM CHLORIDE 0.9% 10 ML ONE (02:18)
[2017-04-04] MEDS: CARAFATE LIQUID PO SCH ×2 (02:18→09:11)
[2017-04-04] MEDS: PROTONIX IV SCH (02:18)
[2017-04-04] MEDS: REGLAN PO SCH ×2 (06:28→11:52)
[2017-04-04 07:34] LABS: MANUAL DIFF NEEDED? NO
[2017-04-04 07:35] LABS: BASO% 0.3 % (0.0-0.8); EOS# 0.64 X1000 (0.0-0.7); EOS% 5.1 % (0.0-10.0); HEMATOCRIT 27.2 % (42.0-52.0); HEMOGLOBIN 8.9 g/dL (14.0-18.0); IMM GRAN# 0.06 X1000 (0.0-0.04); IMM GRAN% 0.5 % (0.0-0.5); LYMPH# 2.56 X1000 (1.2-3.4); LYMPH% 20.6 % (20.5-51.1); MCH 28.2 PG (27-31); MCHC 32.7 g/dL (33-37); MCV 86.1 FL (81-99); MONO# 0.97 X1000 (0.11-0.59); MONO% 7.8 % (1.7-9.3); MPV 9.8 FL (7.4-10.4); NEUT% 65.7 % (42.2-75.2); PLT 324 X1000 (130-400); RBC 3.16 XMIL (4.7-6.1)
[2017-04-04 08:04] LABS: AGAP 15; BUN 16 mg/dL (8-22); CALCIUM 8.4 mg/dL (8.8-10.2); CHLORIDE 99 mmol/L (98-107); COSMO 277; POTASSIUM 3.7 mmol/L (3.5-5.1); SODIUM 135 mmol/L (136-145); TCO2 21 mmol/L (25-35)
[2017-04-04] MEDS: MIRALAX PO SCH (09:11)
[2017-04-04] MEDS: COREG PO SCH (09:11)
[2017-04-04] MEDS ORDERED: SODIUM CHLORIDE 0.9% 10 ML ONE (10:21)
[2017-04-04] MEDS: VANCOMYCIN 2,500 MG in NS 500 ML IV SCH (11:50)
[2017-04-04 12:17] VITALS: BP 131/65
== END 2017-04-04 14:10 | disposition home health service (06) ==
LOC: ED 11:43 → 3N 16:13 → SUATTDRO 16:13 → EDIPHOLD 18:59 → 3N 03-30 09:15
PROVIDERS: ATTEND Internal Medicine

== ENCOUNTER 2017-04-18 12:39 | Inpatient (IN) ==
[2017-04-18 13:43] LABS: MANUAL DIFF NEEDED? NO
[2017-04-18 13:49] LABS: BASO% 0.4 % (0.0-0.8); EOS# 0.52 X1000 (0.0-0.7); EOS% 4.7 % (0.0-10.0); HEMATOCRIT 27.1 % (42.0-52.0); IMM GRAN# 0.03 X1000 (0.0-0.04); IMM GRAN% 0.3 % (0.0-0.5); LYMPH# 2.27 X1000 (1.2-3.4); LYMPH% 20.4 % (20.5-51.1); MCH 29.1 PG (27-31); MCHC 33.2 g/dL (33-37); MCV 87.7 FL (81-99); MONO# 1.17 X1000 (0.11-0.59); MONO% 10.5 % (1.7-9.3); MPV 10.6 FL (7.4-10.4); NEUT% 63.7 % (42.2-75.2); PLT 332 X1000 (130-400); RBC 3.09 XMIL (4.7-6.1)
[2017-04-18 14:09] LABS: AGAP 10; ALKALINE PHOSPHATASE 86 U/L (32-122); BUN 17 mg/dL (8-22); CALCIUM 8.5 mg/dL (8.8-10.2); CHLORIDE 104 mmol/L (98-107); COSMO 281; GOT 23 U/L (10-34); GPT 22 U/L (10-44); POTASSIUM 3.3 mmol/L (3.5-5.1); SODIUM 140 mmol/L (136-145); TCO2 26 mmol/L (25-35); TOTAL BILIRUBIN 0.15 mg/dL (0.20-1.00); TOTAL PROTEIN 6.5 g/dL (6.3-8.3)
[2017-04-18 14:18] LABS: INR 0.99; PROTIME 10.4 Seconds (9.2-11.7); PTT 28.6 Seconds (22.0-36.0)
[2017-04-18 15:18] LABS: URINE MICRO REVIEW NEEDED? NO; URINE SOURCE CLEAN CATCH
[2017-04-18 15:23] LABS: BILIRUBIN URINE NEGATIVE (NEGATIVE); BLOOD URINE NEGATIVE (NEGATIVE); COLOR YELLOW; GLUCOSE URINE NEGATIVE (NEGATIVE); LEUKOCYTES URINE NEGATIVE (NEGATIVE); NITRITE URINE NEGATIVE (NEGATIVE); PROTEIN URINE 30 mg/dL (NEGATIVE); SP GRAVITY URINE 1.025; TURBIDITY URINE CLEAR (CLEAR); UROBILINOGEN URINE 2 mg/dL (NORMAL)
[2017-04-18 15:25] LABS: UR EPITHELIAL CELLS <10 /HPF (<10); URINE BACTERIA NEGATIVE /HPF; URINE RBC <10 /HPF (<10); URINE WBC <10 /HPF (<10)
[2017-04-19] MEDS ORDERED: TYLENOL PO PRN (03:59)
[2017-04-19] MEDS ORDERED: ZOFRAN IV PRN (03:59)
[2017-04-19] MEDS: NS 1,000 ML IV PRN ×2 (04:00→12:01)
[2017-04-19] MEDS ORDERED: SODIUM CHLORIDE 0.9% INJ SCH (04:15)
[2017-04-19] MEDS ORDERED: SOD CHLORIDE IV SCH (05:00)
[2017-04-19] MEDS ORDERED: VANCOMYCIN IV SCH (05:00)
[2017-04-19] MEDS ORDERED: DURAGESIC 25 MICROGM/HR PATCH TD SCH (05:00)
--- NOTE | 2017-04-19 05:16 | EKG Report ---
Test Performed on : 04/18/2017 6:59:47 PM Test Reason : chest pain Blood Pressure : / mmHG Vent. Rate : 084 BPM Atrial Rate : 084 BPM P-R Int : 158 ms QRS Dur : 076 ms QT Int : 386 ms P-R-T Axes : 045 -24 003 degrees QTc Int : 456 ms Normal sinus rhythm. Moderate voltage criteria for LVH, may be normal variant Cannot rule out Septal infarct (cited on or before 27-OCT-2016) Abnormal ECG When compared with ECG of 31-MAR-2017 16:06, Nonspecific T wave abnormality now evident in Inferior leads Unconfirmed Result
[2017-04-19] MEDS: PROTONIX IV SCH ×2 (05:17→13:00)
[2017-04-19 06:44] LABS: MANUAL DIFF NEEDED? NO
[2017-04-19 06:49] LABS: BASO% 0.5 % (0.0-0.8); EOS# 0.57 X1000 (0.0-0.7); EOS% 5.6 % (0.0-10.0); HEMATOCRIT 25.3 % (42.0-52.0); HEMOGLOBIN 8.4 g/dL (14.0-18.0); IMM GRAN# 0.02 X1000 (0.0-0.04); IMM GRAN% 0.2 % (0.0-0.5); LYMPH# 1.93 X1000 (1.2-3.4); MCH 28.9 PG (27-31); MCHC 33.2 g/dL (33-37); MCV 86.9 FL (81-99); MONO# 1.07 X1000 (0.11-0.59); MONO% 10.5 % (1.7-9.3); MPV 10.5 FL (7.4-10.4); NEUT% 64.2 % (42.2-75.2); PLT 305 X1000 (130-400); RBC 2.91 XMIL (4.7-6.1)
[2017-04-19] MEDS ORDERED: COREG PO SCH (09:00)
[2017-04-19] MEDS ORDERED: NORVASC PO SCH (09:00)
--- NOTE | 2017-04-19 09:14 | CONSULTATION ---
DATE OF CONSULTATION: 04/18/2017 REFERRING PHYSICIAN: Luz Maria Thomas M.D. INDICATION FOR CONSULTATION: Hematemesis. HISTORY OF PRESENT ILLNESS: The patient is a 57-year-old male , who is well known to our service. He has a history of gastroesophageal adenocarcinoma and is currently receiving chemotherapy administered by Dr. Apryl Metz at [facility]. He was recently admitted with hematemesis in early March, and underwent an EGD that was remarkable for multiple ulcerations in his esophagus and upper stomach. Every lesion that we attempted to cauterize, actually resulted in increased bleeding in multiple locations. He was also found to have significant delayed gastric emptying with reflux of his gastric content to the mid esophagus on gastric emptying study. Because of his malignancy, we discussed with [facility] the possibility of palliative argon plasma coagulation, if the patient had recurrent bleeding last admission. The patient was discharged to home as the bleeding had ceased. He was doing well until yesterday when he began to have episodes of hematemesis. He is clinically stable, but is concerned because the hematemesis has persisted overnight. We are asked to participate in the patient 's care. PAST MEDICAL HISTORY: 1. Seizures. 2. Esophageal adenocarcinoma with extension into the gastric cardia diagnosed . 3. Hypertension. 4. GERD. 5. Recurrent GI bleeding. 6. Chronic constipation secondary to opioid use. 7. Gastroparesis. 8. Gastric ulcers. PAST SURGICAL HISTORY: 1. Carpal tunnel repair. 2. Right Port-A-Cath placement. 3. PEG placement. 4. PEG removal. SOCIAL HISTORY: The patient smokes 1 pack of cigarettes per week. He drinks 2- 3 beers per day. He smokes 1 marijuana on daily basis. He previously used cocaine, with his last cocaine use in October 2016. He has smoked crystal meth in the past, and his last reported use was March 26. FAMILY HISTORY: Remarkable in that his mother from gastric cancer. MEDICATION ALLERGIES: None. HOME MEDICATIONS: 1. Vancomycin. 2. Carafate. 3. Prochlorperazine. 4. MiraLAX. 5. Zofran. 6. Prilosec. 7. Reglan. 8. Aguila 10. 9. Fentanyl. 10. Coreg. 11. Dulcolax. 12. Norvasc. PHYSICAL EXAMINATION: Vital signs: On exam, his blood pressure is 161/34, pulse of 68, respiration 18, temperature of 98.5 degrees. HEENT: Negative for jaundice. His conjunctivae are slightly pale. His oropharyngeal mucosa membranes are moist. Pulmonary: Lungs are clear to auscultation with normal expiratory effort. Cardiovascular Exam: Reveals regular rate and rhythm with no murmurs, gallops, or rubs. Abdominal: Reveals normoactive bowel sounds. The abdomen is soft, nontender, with no rebound or guarding. OBJECTIVE DATA: Reveals a hemoglobin of 9.0 with a hematocrit of 27.1, and a white count of 11.13. He has 333,000 platelets. PT is 10.4 with an INR of 0.99 and a PTT of 28.6. Sodium is 140, potassium 3.3, chloride 104, CO2 26, BUN 17, creatinine 1.2, with a glucose of 104. Calcium is 8.5. Total bilirubin 0.15, AST 23, ALT 22, alkaline phosphatase 86. Total protein 6.5 and albumin 3.0. His most recent CRP was from 04/15/2017, showing an interval improvement down to 11.25. IMPRESSION: 1. Hematemesis. 2. Known esophageal adenocarcinoma with extension into the upper stomach. 3. Gastroparesis. 4. Severe reflux esophagitis. 5. Nonerosive gastritis. 6. Diverticulosis. 7. History of hemorrhoids. RECOMMENDATION: 1. In light of the patient's recurrent hematemesis, I recommend contacting Dr. Jay Gordon, at [facility] for possible palliative argon coagulation of the ulcerated areas in his esophagus and stomach. 2. If the patient has a brisk GI bleed, it is reasonable to repeat his upper endoscopy at this facility. 3. Please place the patient on a Protonix drip in light of his recurrent bleeding. 4. Continue Carafate 1 g four times a day pending further evaluation. 5. Additional recommendations to follow based on his clinical course. cc: MD Luz Maria Ugalde MD Heather Shah, MD Joel Alonzo Powell, Jr, MD SHAWN Chaevz
[2017-04-19] MEDS: REGLAN PO SCH ×3 (09:20→13:15)
[2017-04-19] MEDS: CARAFATE LIQUID PO SCH ×2 (09:50→13:05)
[2017-04-19] MEDS ORDERED: VANCOMYCIN IV PER PHARMACY MISC SCH (12:30)
--- NOTE | 2017-04-19 15:30 | HISTORY AND PHYSICAL ---
DATE AND TIME OF PHYSICAL HISTORY: April 19 at 1:00. PRIMARY CARE PROVIDER: Dr. Thompson. [employer] SALESPERSON: Ashley Arauz MD. ONCOLOGIST: Apryl Metz MD. CHIEF COMPLAINT: Hematemesis. HISTORY OF PRESENT ILLNESS: Mr. Shay is a 57-year-old, male with a past medical history of esophageal gastric cancer who was previously receiving chemotherapy prior to his most recent admission at the beginning of March 2017. He was just recently admitted and was discharged on April 04 after having upper gastrointestinal bleeding secondary to erosive esophagitis and gastritis. The patient reports that yesterday afternoon he did have approximately 7 episodes of vomiting prior to arrival that had "maroon-colored emesis." The patient denied any hematochezia or melena. The patient also during his most recent admission was diagnosed with Staphylococcus epidermidis bacteremia and was seen by Dr. Castellanos, and was discharged home to receive vancomycin 2.5 g IV every 24 hours for 3 weeks. The patient did report some previous abdominal cramping but denies any abdominal pain at this time. His abdomen is soft, nondistended, nontender. Since his arrival to the ER, he has had no further vomiting episodes and he denies any other complaints at this time other than stating that he is hungry and would like something to eat. Dr. Arauz did call and speak with us, and informed us that she is planning to try to speak with Dr. Gordon with Gastroenterology at [facility] and would like the patient to be transferred there today to receive possible argon plasma coagulation for further treatment of his gastrointestinal bleeding. She did state that she does plan to contact Dr. Gordon in the morning on April 20 to try to facilitate his acceptance and transfer to [facility]. Upon evaluation in the ER the patient was found to be anemic with a hemoglobin of 9 and hematocrit of 27. His vital signs at this time are within normal limits. We will go ahead and implement gentle fluid resuscitation as well as Protonix for treatment of his gastrointestinal bleeding. He will be placed as inpatient at this time. REVIEW OF SYSTEMS: A 12 point review of systems was conducted with the patient. All were negative except for pertinent positives mentioned in above HPI. PAST MEDICAL HISTORY: 1. Seizures. 2. Esophageal gastric cancer. Previously received chemotherapy with Dr. Metz. He was diagnosed in June 2016. 3. Hypertension. 4. Gastroesophageal reflux disease. 5. History of gastrointestinal bleeding. 6. Gastroparesis. 7. Situational depression. 8. Erosive esophagitis and gastritis. 9. Recent diagnosis of Staphylococcus epidermidis bacteremia. Currently being followed by Dr. Castellanos and on vancomycin. 2.5 g IV q.24 hours. PAST SURGICAL HISTORY: 1. Carpal tunnel. 2. Right Port-A-Cath placement. 3. Previous history of PEG tube placement. SOCIAL HISTORY: The patient reports he smokes approximately 4 cigarettes per day. He still does drink alcohol occasionally. The patient still reports that he does use marijuana. He also reports that he has recreational illicit drug use with a history of previous use of cocaine and crystal meth. FAMILY HISTORY: Positive for stomach cancer in his mother. ALLERGIES: Codeine. HOME MEDICATIONS: 1. Amlodipine 10 mg p.o. daily. 2. Dulcolax 10 mg per rectum at bedtime. 3. Coreg 6.25 mg p.o. b.i.d. 4. Fentanyl patch 25 mg transdermal q.72 hours. 5. [place] 10 mg 1 tablet p.o. q.8 hours p.r.n. 6. Reglan 5 mg p.o. before meals and at bedtime. 7. Prilosec 40 mg p.o. b.i.d. 8. Zofran 4 mg p.o. q.6 hours p.r.n. 9. MiraLAX 17 g p.o. daily. 10. Prochlorperazine maleate 10 mg p.o. 11. Carafate 10 mL p.o. 4 times a day. 12. Vancomycin 2.5 g IV q.24 hours. DIAGNOSTIC DATA/LABORATORY RESULTS: White blood cell count 11.13, hemoglobin 9 , hematocrit 27.1, platelet count is 332,000. PT 10.4, INR 0.99, PTT 28.7. Sodium 140, potassium 3.3, chloride 104, bicarbonate 26, BUN 17, creatinine 1.2. GFR greater than 60. Glucose 104, calcium 8.5, phosphorus 3.1, magnesium 1.6. Liver function tests are within normal limits. Urinalysis was positive for protein. It was otherwise within normal limits. EKG showed normal sinus rhythm with nonspecific T-wave abnormality at a rate of 84 with QTc of 456. PHYSICAL EXAMINATION: VITAL SIGNS: Temperature 98.1 degrees, heart rate 84, respirations 18, blood pressure 138/80, oxygen saturation 100% on room air. GENERAL: Mr. Shay is a pleasant, 57-year-old, male who is resting in the inpatient bed. He was in no acute distress. He was awake, alert and able to answer all questions appropriately. HEENT: Head is atraumatic, normocephalic. Pupils are equal, round, reactive to light 3mm bilaterally and brisk. Oral mucosa is moist. Oropharynx is clear. NECK: Supple. Trachea midline. CARDIOVASCULAR: Patient has normal S1, S2. No murmurs, gallops, rubs appreciated with regular rate and rhythm. PULMONARY: The patient has symmetrical chest expansion bilaterally. Lung sounds are clear to auscultation in bilateral full eldridge. ABDOMEN: Soft, nontender, nondistended. Bowel sounds are present in all 4 quadrants. The patient does have a Port-A-Cath noted to his right chest. EXTREMITIES: No cyanosis, clubbing, or edema noted. Pulse, motor and sensory is intact in all extremities. Pedal pulses were 3+ bilaterally. INTEGUMENTARY: Patient's skin color is normal for his race, dry and intact. No lesions or sores noted. NEUROLOGICAL: Patient is alert and oriented x4. Cranial nerves 2-12 are grossly intact. ASSESSMENT AND PLAN: 1. Upper gastrointestinal bleed. At this time we have placed a consultation with Dr. Arauz and are awaiting her evaluation and further recommendations. The patient will remain NPO at this time. Dr. Arauz did mention that she was going to try to facilitate transfer to [facility] for possible argon plasma coagulation with Dr. Gordon. We will go ahead and place the patient on Protonix 40 mg IV q.12 hours as well as continue Carafate. We will repeat a hemoglobin and hematocrit in the morning. We will do q.4 hours vital signs and continue to monitor closely. 2. Esophageal gastric cancer. For further management of this we have placed a consultation with Dr. Metz and will await evaluation and further recommendations. 3. Anemia. This is likely secondary to his gastrointestinal bleeding. We will continue to monitor closely. 4. Staphylococcus epidermidis bacteremia. We will continue the patient's vancomycin 2.5 g IV q.24 hours and we have placed a consultation with Dr. Castellanos with Infectious Disease. We will await his evaluation and further recommendations. 5. Gastroparesis. We will continue the patient on Reglan. 6. Hypertension. We will continue the patient's Norvasc and Coreg. 7. He will be placed on the medical floor with telemetry. DVT prophylaxis will be provided with SCDs. He will remain NPO at this time until he is evaluated by Gastroenterology today. We will continue with gentle fluid resuscitation with normal saline 125 mL/h. Further orders and recommendations pending hospital course, diagnostic studies, and physician evaluation. Dictated by MALKA Anderson for Jer Maria MD cc: Jer Maria MD I have seen and examined patient. I have provided face to face evaluation. I have also reviewed his Labs and imagine studies. 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 Presents with possible GI bleed. GI has been notified. Will continue to monitor H and H. I agree with the above plan. TRISTON ESCOBAR
[2017-04-19] MEDS ORDERED: VANCOMYCIN 2 GM in NS 500 ML IV SCH (17:00)
[2017-04-19 17:06] VITALS: BP 138/79
--- NOTE | 2017-04-20 16:37 | DISCHARGE SUMMARY ---
ADMISSION DATE: 04/18/2017 DISCHARGE DATE: 04/19/2017 DISPOSITION: Home. FOLLOW UP: Dr. Gordon, a GI specialist in [place]. Appointment date is 04/22 at 9 in the morning. CONSULTATION: During this admission GI was consulted. INVASIVE PROCEDURES DONE DURING THIS ADMISSION: None. IMAGING STUDIES OF SIGNIFICANCE: None. ADMISSION DIAGNOSES: 1. Hematemesis. 2. Gastroparesis. 3. Severe esophagitis. DISCHARGE DIAGNOSES: 1. Mild blood stained spit. Questionable hematemesis. 2. History of esophageal adenocarcinoma with extension into the upper stomach. 3. Severe gastric reflux esophagitis. 4. Hypertension. DISCHARGE MEDICATIONS: 1. Carvedilol 6.25 b.i.d. 2. Amlodipine 10 mg daily. 3. Carafate 10 mL p.o. 4 times per day. 4. Fentanyl patch. 5. Omeprazole 40 mg b.i.d. PRESENTING COMPLAINT: There is blood in vomit. HISTORY OF PRESENTING COMPLAINT: Mr. Shay is a 57-year-old, male, who has recently been diagnosed with gastroesophageal adenocarcinoma currently receiving chemotherapy with Dr. Apryl Metz. The patient presented because of coughing up versus spitting up some blood. So, patient was evaluated by Dr. Arauz, and she recommended that we admit the patient. The patient was therefore admitted for further medical care. HOSPITAL COURSE: The patient did pretty well during the hospital course. Hemoglobin and hematocrit continued to be stable. Patient did not have any more vomiting or did not cough up any more blood. Denies any melena. Hemoglobin and hematocrit has been stable. I personally spoke twice with Dr. Arauz about the patient. I called the transfer center for possibility of a transfer there, but there are 21 patience in the ER awaiting medical beds. I called and notified Dr. Arauz about the situation, and she recommended that if hemoglobin and hematocrit is stable patient can be discharged. Follow up with Dr. Gordon in [place]. I personally called Dr. Gordon's office, I spoke to the executive secretary social welfare and I made an appointment for 04/22/2017, at [place] office at 9 o'clock for the patient. The patient is in agreement to do that. Patient needs argon plasma coagulation to control the recurrent upper GI bleed. Today his vitals are stable. They have been reviewed. Clinically he is stable and he has been able to tolerate soft diet. He is therefore going to be discharged home. Follow up with Dr. Gordon's office in [place] at the appointment given. TIME SPENT FOR THIS DISCHARGE: 35 minutes. cc: Jer Maria MD MTDDylan
--- NOTE | 2017-04-22 20:34 | CONSULTATION ---
DATE OF CONSULTATION: 04/19/2017 CONSULTATION REQUESTED BY: The hospitalist service. REASON FOR CONSULTATION: For GE junction carcinoma, patient known. HISTORY OF PRESENT ILLNESS: Mr. Shay is a 57-year-old, male who is known to us as we are currently treating him for metastatic GE junction cancer, who presented to [facility] complaining of hematemesis. Patient was admitted to the hospital at the beginning of March 2017 with also the complaint of hematemesis as well as anemia at that time. The patient had an EGD back in the beginning of March which revealed him to have bleeding from his tumor. He was started on increased amount of PPIs. He has been seen in our office since being discharged previously and continues on Herceptin therapy at this time. The patient was evaluated by Dr. Arauz during his last visit. The patient denies any melena. [facility] Castellanos. He was told to receive vancomycin as an outpatient. The patient is currently in the hospital room surrounded by family. He has not had anything to eat in several hours. He is hungry. PAST MEDICAL HISTORY: 1. History of seizures. 2. GE junction cancer status post 5 cycles of cisplatin and 5-FU, now receiving Herceptin maintenance. 3. Hypertension. 4. GERD. 5. History of GI bleed. 6. Gastroparesis. 7. Erosive esophagitis and gastritis. 8. Recent Staph bacteremia, currently being followed by Dr. Castellanos. 9. History of alcohol and drug abuse. PAST SURGICAL HISTORY: 1. Carpal tunnel. 2. Status post Port-A-Cath placement. 3. J-tube placement 2016. SOCIAL HISTORY: The patient mainly lives with relatives. He has 6 children. He currently smokes 1 pack of cigarettes per day. He reports drinking alcohol daily with an average of 1/3 of a pint per day. FAMILY HISTORY: Mother is and his father is alive and is currently at bedside. He has 4 siblings who are also living. His 6 children are all alive and have no health issues. Family history is positive for stomach cancer in his mother. REVIEW OF SYSTEMS: As per the HPI, otherwise a 10-point review of systems has been completed and found to be negative. PHYSICAL EXAMINATION: Vital Signs: Temperature 98.3 degrees, heart rate 81, respirations 20, blood pressure 146/89, O2 saturation 97% on room air. General: This is an male, lying in hospital bed. He is in no acute distress. He is requesting food as he is hungry. He has family at bedside. HEENT: Head normocephalic, atraumatic. Eyes: Pupils equal, round, reactive. Ears, nose, throat, neck, and mouth: Oral mucosa appears to be normal. Trachea is midline. Gross auditory acuity is intact. Cardiovascular: S1-S2 heard. No murmurs, gallops, rubs appreciated. Respiratory: Chest clear to auscultation bilaterally. Normal respiratory effort. Abdomen: Soft, nontender, nondistended with positive bowel sounds. Musculoskeletal: No obvious bony abnormalities noted. Extremities: No edema noted. Skin: No rash is noted. Neurologic: Patient is alert and oriented x 3 with no focal motor deficits noted. LABS AND STUDIES: White blood cells 10.17, hemoglobin 8.4, hematocrit 25.3, platelet count 305,000, magnesium 1.4. ASSESSMENT AND PLAN: 1. Metastatic gastroesophageal junction adenocarcinoma. Patient is currently receiving Herceptin maintenance therapy. His last dose was on 04/12/2017. He is due for restaging scans in 6-8 weeks. 2. Hematemesis. Hemoglobin is down some to 8.4. Seems that GI is following along. There are plans for the patient to be seen by Dr. Gordon in [facility] for possible palliative argon coagulation of the ulcerated areas. I believe Dr. Arauz is currently discussing with Dr. Gordon. 3. Blood loss anemia. Patient's hemoglobin again is down some, but is overall stable. He does not require blood transfusion at this time. Recommend monitoring and transfusing as needed. 4. Staph bacteremia. Patient will need to continue to follow with Dr. Castellanos. 5. Gastroparesis. Patient is currently on Reglan. We want to thank you for consulting us on Mr. Shay while he is here at [facility]. We will continue to follow along and adjust our treatment plan per his hospital course. Dictated by JOSIAH Martino for Eric Dodd MD cc: Eric Dodd MD [facility]ITALDylan
--- NOTE | 2017-04-26 16:26 | PROVIDER DOCUMENTATION ---
This chart was entered by Namita Shearer Scribe, acting as scribe for Dilip Baron DO. HPI-Abdominal Pain/GI Problem - General Chief Complaint: Vomiting Blood Stated Complaint: VOMITING DARK FLUID Time Seen by Provider: 04/18/17 14:31 Source: patient Allergies/Adverse Reactions: Patient Allergies Allergy/AdvReac Type Severity Reaction Status Date / Time codeine [Codeine] Allergy Intermediate ITCHING Verified 04/11/17 11:26 Home Medications: Home Medication List Medication Instructions Recorded Confirmed Last Taken Type Ondansetron [Zofran] 4 mg PO Q6H PRN PRN 04/02/17 04/18/17 Unknown History Amlodipine Besylate [Norvasc] 10 mg PO DAILY #30 tablet 04/04/17 04/18/17 07:00 Rx Bisacodyl [Dulcolax] 10 mg DE QHS #30 supp 04/04/17 04/18/17 04/17/17 20:00 Rx Carvedilol [Coreg] 6.25 mg PO BID #60 tablet 04/04/17 04/18/17 04/18/17 07:00 Rx Metoclopramide [Reglan] 5 mg PO AC + HS #120 tablet 04/04/17 04/18/17 04/18/17 12:00 Rx Omeprazole [Prilosec] 40 mg PO BID #60 capsule. 04/04/17 04/18/17 04/18/17 07: 00 Rx Polyethylene Glycol 3350 [Miralax] 17 gm PO DAILY #30 powder, packet 04/04/1704/18/17 07:00 Rx Sucralfate [Carafate] 10 ml PO 4XDAY #414 oral.susp 04/04/17 04/18/17 04/18/17 12:00 Rx Vancomycin/0.9% Sod Chloride 2.5 gm IV Q24H #1 ml 04/04/17 04/18/17 04/18/17 07: 00 Rx [Vancomycin-Ns 2 G/250 ml Bag] Bisacodyl [Dulcolax] 10 mg DE QHS 04/18/17 04/18/17 04/17/17 21:00 History Fentanyl 25 mg TD DIRECTED 04/18/17 04/18/1704/17/17 07:00 History Hydrocodone/Acetaminophen [Woolwine 1 tab PO Q8HR 04/18/17 04/18/17 04/18/17 14:00 History 10-325 Tablet] Prochlorperazine Maleate 10 mg PO 04/18/17 04/18/17 07:00 History - History of Present Illness-ABD Nature of Presenting Problems: Patient is a 57 year old male who presents in the ED with complaints of vomiting blood. He states he began having nausea/vomiting at 3:00 a.m. this morning, and states he has had maroon-tinged blood in his vomit. He also states he has vomited approximately 10 times today, and states he has a history of esophageal cancer for which he is still currently on chemotherapy. He reports he smokes marijuana as well as cigarettes, and reports history of seizures, hypertension, GERD, and carpal tunnel syndrome. Pain Radiation: reports: no radiation Quality of Pain: reports: none Severity in ED: reports: mild, moderate Onset/Duration: reports: abrupt, this morning (3:00 a.m.) Timing: reports: still present Activities at Onset: reports: none Exposure to sick contacts?: No Modifying Factors: improves with: nothing Associated Symptoms: reports: nausea, vomiting, other (bloody vomit) Dark Stools Present?: reports: none noticed. denies: maroon, black, tarry, bright red blood, other Rectal Bleeding: reports: none. denies: bleeding without stool, bright red blood on paper, blood mixed with stool, blood streaks on stool, bloody diarrhea , other # of Diarrhea Episodes: 0 Rectal Pain: reports: none Emesis Description: reports: other (maroon) Bruising or Bleeding Gums?: No Similar Symptoms Previously?: No Recently seen or treated by another doctor?: No Review of Systems - Adult - REVIEW OF SYSTEMS - ADULT Constitutional: reports: no symptoms reported Eyes: reports: no symptoms reported Ears, Nose, Mouth & Throat: reports: no symptoms reported Cardiovascular: reports: no symptoms reported Respiratory: reports: no symptoms reported Gastrointestinal: reports: see HPI, hematemesis, nausea, vomiting. denies: rectal bleeding Genitourinary: reports: no symptoms reported Musculoskeletal: reports: no symptoms reported Integumentary: reports: no symptoms reported Neurological: reports: no symptoms reported Psychiatric: reports: no symptoms reported Endocrine: reports: no symptoms reported Hematologic/Lymphatic: reports: no symptoms reported Allergic/Immunologic: reports: no symptoms reported All Other Systems: Reviewed and Negative Past History - Adult - PAST MEDICAL HISTORY-ADULT Review of Records: reports: Nursing Assessment Review, Medications Reviewed Major Childhood Illnesses: reports: denies history Cardiovascular: reports: HTN Respiratory: reports: denies history Gastrointestinal: reports: liver disease, other (cancer) Obstetrical/Gynecological: reports: denies history Genitourinary: reports: denies history Musculoskeletal: reports: arthritis, other (lower back pain/ carpal tunnel release/) Neurological: reports: denies history Psychiatric: reports: denies history Endocrine/Immune: reports: denies history Other Conditions: reports: denies history - PRIOR SURGERIES/PROCEDURES Surgical/Procedure History: reports: indwelling device (port a cath) - PRIOR HOSPITALIZATIONS Prior Hospitalizations: reports: for other non-related - IMMUNIZATION STATUS Childhood Immunizations: See Nurse Assessment Flu Vaccine: See Nurse Assessment - FAMILY HISTORY Family History: reviewed, not pertinent - SOCIAL HISTORY Smoking: cigarettes, less than 1 pack/day Substance Use: marijuana Alcohol Use Frequency: never Living Situation: family Physical Exam-General - PHYSICAL EXAM-ADULT Initial Vital Signs Reviewed: Yes - CONSTITUTIONAL General Appearance: alert, no apparent distress - EYES Eyes: PERRL/EOMI, pink conjunctivae - HEAD, EARS, NOSE, MOUTH & THROAT HENMT: normocephalic/atraumatic, moist mucous membranes - NECK Neck: non-tender, full range of motion, supple, normal inspection - RESPIRATORY Respiratory: chest non-tender, lungs clear, normal breath sounds, no pleuratic chest pain, no respiratory distress, no accessory muscle use - CARDIOVASCULAR Cardiovascular: regular rate, rhythm, no edema, no gallop, no JVD, no murmur - CHEST (BREASTS) Chest/Breast: other (port to right chest wall) - GASTROINTESTINAL (ABDOMEN) Abdominal Exam: normal bowel sounds, non tender, soft, no organomegaly, no pulsatile mass, other (well-healed surgical scars to abdomen) - LYMPHATIC Lymphatic: no adenopathy - MUSCULOSKELETAL Back Exam: normal inspection, no CVA tenderness, no vertebral tenderness Extremity: normal range of motion, non-tender, normal gait, normal inspection, no pedal edema, no calf tenderness, normal capillary refill, pelvis stable - SKIN Integumentary: normal color, normal turgor, warm/dry - NEUROLOGIC Neurologic: grossly normal, no motor/sensory deficits - PSYCHIATRIC Psych/Mental Status: normal mood/affect, oriented x 3 Progress - PLAN OF CARE/RESULTS Progress/Plan/Lab Results: Vital Signs - 8 hr 04/18/17 12:58 Temperature 98.3 F Pulse Rate 77 Respiratory Rate 20 Blood Pressure 152/89 O2 Sat by Pulse Oximetry 100 Laboratory Results - last 24 hr 04/18/17 04/18/17 04/18/17 13:00 13:00 13:00 WBC 11.13 H RBC 3.09 L Hgb 9.0 L Hct 27.1 L MCV 87.7 MCH 29.1 MCHC 33.2 RDW Std Deviation 15.3 H Plt Count 332 MPV 10.6 H Immature Gran % (Auto) 0.3 Neut % (Auto) 63.7 Lymph % (Auto) 20.4 L Comal % (Auto) 10.5 H Eos % (Auto) 4.7 Baso % (Auto) 0.4 Immature Gran # (Auto) 0.03 Neut # (Auto) 7.10 H Lymph # (Auto) 2.27 [place] # (Auto) 1.17 H Eos # (Auto) 0.52 Baso # (Auto) 0.04 PT 10.4 INR 0.99 PTT (Actin FS) 28.6 Sodium 140 Potassium 3.3 L Chloride 104 Carbon Dioxide 26 Anion Gap 10 BUN 17 Creatinine 1.2 Estimated GFR/1.73 m2 > 60 BUN/Creatinine Ratio 14 Glucose 104 Calculated Osmolality 281 Calcium 8.5 L Phosphorus Magnesium Total Bilirubin 0.15 L AST 23 ALT 22 Alkaline Phosphatase 86 Total Protein 6.5 Albumin 3.0 L Globulin 3.5 Albumin/Globulin Ratio 0.9 Urine Source Urine Color Urine Turbidity Urine pH Ur Specific Preston Urine Protein Ur Glucose (Stick) Ur Ketones (Stick) Urine Blood Urine Nitrite Urine Bilirubin Urobilinogen Dipstick Urine Leukocytes Urine WBC (Auto) Urine RBC (Auto) U Epithel Cells (Auto) Urine Bacteria (Auto) 04/18/17 04/18/17 04/18/17 13:00 13:00 13:33 WBC RBC Hgb Hct MCV MCH MCHC RDW Std Deviation Plt Count MPV Immature Gran % (Auto) Neut % (Auto) Lymph % (Auto) [place] % (Auto) Eos % (Auto) Baso % (Auto) Immature Gran # (Auto) Neut # (Auto) Lymph # (Auto) [place] # (Auto) Eos # (Auto) Baso # (Auto) PT INR PTT (Actin FS) Sodium Potassium Chloride Carbon Dioxide Anion Gap BUN Creatinine Estimated GFR/1.73 m2 BUN/Creatinine Ratio Glucose Calculated Osmolality Calcium Phosphorus 3.1 Magnesium 1.6 Total Bilirubin AST ALT Alkaline Phosphatase Total Protein Albumin Globulin Albumin/Globulin Ratio Urine Source CLEAN CATCH Urine Color YELLOW Urine Turbidity CLEAR Urine pH 6.0 Ur Specific Preston 1.025 Urine Protein 30 A Ur Glucose (Stick) NEGATIVE Ur Ketones (Stick) NEGATIVE Urine Blood NEGATIVE Urine Nitrite NEGATIVE Urine Bilirubin NEGATIVE Urobilinogen Dipstick 2 A Urine Leukocytes NEGATIVE Urine WBC (Auto) <10 Urine RBC (Auto) <10 U Epithel Cells (Auto) <10 Urine Bacteria (Auto) NEGATIVE Orders Category Date Time Status Saline Loc DIRECTED Care 04/18/17 13:31 Active CBC WITH ELECTRONIC DIFF [HEME] Stat Lab 04/18/17 13:00 Completed COMPREHENSIVE METABOLIC PANEL [CHEM] Stat Lab 04/18/17 13:00 Completed MAGNESIUM [CHEM] Stat Lab 04/18/17 13:00 Completed OCCULT BLOOD NON-FECES Stat Lab 04/18/17 13:31 Uncollected OCCULT BLOOD SCREENING [STOOL] Stat Lab 04/18/17 13:31 Uncollected PHOSPHORUS [CHEM] Stat Lab 04/18/17 13:00 Completed PROTIME WITH INR [COAG] Stat Lab 04/18/17 13:00 Completed PTT [COAG] Stat Lab 04/18/17 13:00 Completed TYPE & SCREEN [BBK] Stat Lab 04/18/17 13:31 Uncollected UA [URINALYSIS-1] [URINALYSIS] Stat Lab 04/18/17 13:33 Completed 0.9% Sodium Chloride Inj [Ns] 1,000 ml Med 04/18/17 13:31 Active IV 125 mls/hr EKG [EKG] Stat Ther 04/18/17 14:53 Ordered Result Diagrams: 04/19/17 06:15 04/18/17 13:00 Departure - Departure Date of Disposition Decision: 04/18/17 Time of Disposition Decision: 22:30 DIAGNOSIS: Vomiting blood Qualifiers: Nausea presence: unspecified Qualified Code(s): K92.0 - Hematemesis Disposition: ADMITTED INPATIENT 09 Certified Medical Emergency: Emergent Condition: Stable - Critical Care Note This patient required my direct & personal management of CC.: No Attestation - Physician/ CARLOS ALBERTO Attestation Patient care was provided by Advanced Practice Provider:: No The physician spent face to face time with patient:: Yes Advanced Practice Provider documentation review:: Supervising physician onsite and consulted in the evaluation and care of this patient. The physician did have a face to face encounter with the patient. This chart was documented by the indicated scribe, (Namita Shearer Scribe) and accurately reflects the services I performed and decisions made by me, Dilip Baron DO, as attested by the provider's signature.
--- NOTE | 2017-05-08 22:14 | ED EKG INTERP ---
This chart was entered by Tea Malin Scribe, acting as scribe for Bhaskar Summers MD. EKG Interpretation - EKG Time of EKG reading by physician:: 18:59 EKG Read and Signed by:: Bhaskar Summers EKG Interpretation (*Must complete 3 of following elements*): Abnormal Rate: 84 Rhythm: NSR QRS: LVH Attestation - Physician/ CARLOS ALBERTO Attestation Patient care was provided by Advanced Practice Provider:: No The physician spent face to face time with patient:: No Advanced Practice Provider documentation review:: Supervising physician onsite and consulted in the evaluation and care of this patient. The physician did not have a face to face encounter with the patient. This chart was documented by the indicated scribe, (Tea Malin Scribe) and accurately reflects the services I performed and decisions made by me, Bhaskar Summers MD, as attested by the provider's signature.
== END 2017-04-19 18:06 | disposition home or self-care (01) ==
LOC: ED 12:39 → 3N 21:32
PROVIDERS: ATTEND Internal Medicine